=== PATIENT | female | born 1960 | race Caucasian/White ===

== ENCOUNTER 2019-05-03 07:53 | Outpatient (CLI) | payer OTHER, SELFPAY ==
--- NOTE | 2019-05-08 02:09 | SLEEP_ITS ---
Split Night Study. DATE OF STUDY: 05/03/2019 REASON FOR THIS STUDY: Hypersomnia. HISTORY: This patient is a 58-year-old female, 62 inches tall, weighing 237 pounds with a body mass index of 43.3. She has excessive daytime sleepiness, nods off at her work during the afternoon. She had a colonoscopy and during that procedure with conscious sedation, she did have witnessed apnea. She often coughs at night, has GERD and uses [id number] treatments. She avoids eating late at night, rarely uses alcohol. Bedtime is 10:30 p.m., waking at 5:45 a.m., usually twice during the night to urinate. She does have dreams mainly on the weekends after she goes back to bed in the morning for 2 additional hours of recovery sleep. She will also take a nap on the weekends for roughly an hour and a half. Sometimes, a nap is refreshing. She has vivid dreams occasionally. There are no symptoms to suggest narcolepsy such as sleep paralysis, vivid dreams on sleep onset or waking from sleep, muscle weakness with strong emotion. She has gained 30 pounds in the last 5 years. She does wake in the morning with a dry mouth. Her legs are uncomfortable during the day as well as during the night. She constantly moves her legs in the daytime, especially if she is in the car. She does not kick her legs at night. Her dentist is a sleep medicine dentist and when she spoke with him about having a sleep study, he agreed it was a good idea. She drinks caffeine, Dr Pepper twice a day. The latest is around dinner. She now drives only 15 minutes to work, which is safer as last year driving 30 minutes she was constantly falling asleep while driving home. Her snoring has worsened as she has gained weight. Her has witnessed apnea. Her friends on a weekend trip were really concerned because she stopped breathing and snored so loudly. Her symptoms have been much worse over the last 6 months. She only occasionally has trouble during the daytime at work due to excessive sleepiness. She frequently has racing thoughts. She rarely feels sad or depressed, but frequently has anxiety. She occasionally has muscular tension. She occasionally is bothered by pain during the day and her joints after sitting for a long period of time. She occasionally is awakened by pain at night, occasionally wakes up feeling stiff in the morning with sore achy muscles and pain in the spine. She has fatigue and is unable to relax. She takes antacids frequently. MEDICAL COMORBIDITIES: 1. Hypertension. 2. Generalized anxiety. 3. Gastroesophageal reflux disease. MEDICATIONS: 1. Amlodipine 5 mg a day. 2. Citalopram 20 mg a day. 3. Omeprazole 1 daily. 4. Calcium citrate with vitamin D 1 daily. 5. Xanax p.r.n. 0.25 mg p.r.n. severe anxiety. HABITS: Never smoked tobacco. Caffeine, 2 beverages a day. Alcohol is not used neither recreational drugs. DESCRIPTION OF THE STUDY: On the [place] Sleepiness Scale, her score 16. This was conducted as a split night study using the [employer] multiple channel system including EOG, EEG, submental EMG, EKG, nasal and oral airflow using thermistors and nasal pressure sensors, chest and abdominal belts, body position data and pulse oximetry. The study was scored using [facility] guidelines. The duration of the study during the baseline portion is 138.9 minutes. Sleep time 130.5 minutes. Sleep efficiency is 93.9%. Sleep latency is 1.8 minutes. She took 2 mg of eszopiclone at the start of the test, so this explains the short sleep latency. There was no REM. There were 9 awakenings and she spent 6.6 minutes awake after sleep onset. Sleep architecture showed 5.7% stage I sleep, 94.3% stage II sleep, no stage III sleep, and no stage REM. None of this portion was supine. The apnea-hypopnea index
== END 2019-05-03 07:54 | disposition home or self-care (01) ==
LOC: ANHCSM 07:54
PROVIDERS: Visit Provider Internal Medicine Critical Care Medicine
DX: G47.10 Hypersomnia, unspecified (principal); G47.33 Obstructive sleep apnea (adult) (pediatric)
CPT/HCPCS: 95811

== ENCOUNTER 2019-09-28 07:12 | Outpatient (CLI) | payer OTHER, SELFPAY ==
[2019-09-28 08:03] LABS: Basophils Absolute Auto 0.1 K/mm3 (0.0-0.1); Eosinophils Absolute Auto 0.2 K/mm3 (0-0.3); Eosinophils Percent Auto 4.5 % (0-4.4); Hematocrit 41.6 % (37.0-47.0); Hemoglobin 13.6 g/dL (12.0-15.0); Immature Granulocyte Absolute 0.01 K/mm3 (0.00-0.031); Immature Granulocyte Percent A 0.2 % (0-0.5); Mean Corpuscular HGB Conc 32.7 g/dl (32-36); Mean Corpuscular Hemoglobin 29.2 pg (26-34); Mean Corpuscular Volume 89.3 fl (80-100); Mean Platelet Volume 10.2 fl (7.4-10.4); Monocytes Absolute Auto 0.4 K/mm3 (0.1-0.6); Monocytes Percent Auto 7.8 % (2.6-8.5); Neutrophils Absolute Auto 2.6 K/mm3 (1.3-6.7); Neutrophils Percent Auto 53.5 % (45.5-73.1); Platelet Count Result 247 k/mm3 (150-375); Red Blood Count 4.66 M/mm3 (4.2-5.4); Red Cell Distribution Width 14.5 % (11.5-14.5); White Blood Count 4.9 K/mm3 (4.5-10.0)
[2019-09-28 08:07] LABS: Alanine Aminotransferase 25 U/L (4-35); Albumin Level 4.2 g/dL (3.5-5.1); Alkaline Phosphatase 89 U/L (38-126); Aspartate Amino Transferase 27 U/L (14-36); Bilirubin,Total 0.5 mg/dL (0.2-1.3); Blood Urea Nitrogen 16 mg/dL (7-17); Calcium 8.9 mg/dL (8.4-10.2); Carbon Dioxide 29 mmol/L (22-30); Chloride 102 mmol/L (98-107); Cholesterol 217 mg/dL (0-200); Estimated Glomerular Filt Rate > 60; Glucose 106 mg/dL (65-105); HDL Direct 46 mg/dL; Potassium 4.3 mmol/L (3.4-5.0); Sodium 136 mmol/L (137-145); Triglycerides 95 mg/dL (<150)
[2019-09-28 08:18] LABS: LDL Cholesterol Direct 126 mg/dL
[2019-09-28 09:11] LABS: Folic Acid 8.4 ng/mL (2.76->20)
== END 2019-09-28 07:13 | disposition home or self-care (01) ==
PROVIDERS: PCP Internal Medicine; Visit Provider Internal Medicine
DX: R53.83 Other fatigue (principal); R73.9 Hyperglycemia, unspecified; E78.5 Hyperlipidemia, unspecified
CPT/HCPCS: 36415; 80053; 80061; 82607; 82746; 83036; 84443; 85025

== ENCOUNTER 2020-01-09 15:49 | Outpatient (CLI) | payer OTHER, SELFPAY ==
--- NOTE | ~2020-01-09 | MM_ITS ---
EXAMINATION: MM screening [facility] BI w kevon HISTORY: Screening TECHNIQUE: Craniocaudal and mediolateral oblique 3-D tomosynthesis images were obtained and synthetic 2-D images were generated. CAD analysis was submitted and interpreted. COMPARISON: Comparison to multiple prior studies sequentially, with oldest reviewed study dated 02/03. BREAST PARENCHYMAL COMPOSITION: The breasts are heterogeneously dense, which may obscure small masses . FINDINGS: There is no evidence of suspicious mass, calcification, or architectural distortion to sugg est malignancy in either breast. There has been no suspicious interval change. IMPRESSION: 1. No mammographic evidence of malignancy. 2. Recommend routine screening mammography in one year. BI-RADS Category 1: Negative Reviewed, dictated and finalized at location A.
== END 2020-01-09 15:50 | disposition home or self-care (01) ==
LOC: ANHIMG 15:52
PROVIDERS: PCP Internal Medicine; Visit Provider Obstetrics & Gynecology
DX: Z12.31 Encounter for screening mammogram for malignant neoplasm of breast (principal)
CPT/HCPCS: 77063; 77067

== ENCOUNTER 2020-02-01 08:54 | Outpatient (CLI) | payer OTHER, SELFPAY ==
--- NOTE | ~2020-02-01 | DEXA_ITS ---
Bone Density Report Name: Sienna Hussein Age: 59 Sex: Female Ethnicity: White Date of : 1960 Indication: postmenopausal; Referring Provider: Felxi Angel Study: Bone densitometry was performed. Exam Date: February 01, 2020 Accession number: [id number] Bone Density: Region BMD T-score Z-score Classification AP Spine (L1-L4) 1.004 -0.4 0.9 Normal Femoral Neck (Left) 0.768 -0.7 0.5 Normal Total Hip (Left) 0.899 -0.4 0.5 Normal Total Hip Bilateral Avg 0.931 -0.1 0.8 Normal Femoral Neck (Right) 0.797 -0.5 0.7 Normal Total Hip (Right) 0.962 0.2 1.0 Normal World Health Organization criteria for BMD impression classify patients as: Normal (T-score at or above -1.0), Osteopenia (T-score between -1.0 and -2.5), or Osteoporosis (T-score at or below -2.5). 10-year Fracture Risk: FRAX not reported because: All T-scores for Spine Total, Hip Total, Femoral Neck at or above -1.0 Previous Exams: Region Exam Age BMD T-score BMD Change BMD Change Date g/cm2 vs Baseline vs Previous Total Hip(Left) 02/01/2020 59 0.899 -0.4 -0.076(-7.8%)# -0.068(-7.0%)* 03/19/2015 54 0.967 0.2 -0.008(-0.8%)# -0.008(-0.8%)# 02/23/2013 52 0.975 0.3 Total Hip(Right) 02/01/2020 59 0.962 0.2 -0.033(-3.4%)# -0.042(-4.2%)* 03/19/2015 54 1.004 0.5 0.009(0.9%)# 0.009(0.9%)# 02/23/2013 52 0.996 0.4 *Denotes significance at 95% confidence level, LSC for Total Hip = 0.027 g/cm2 Clinical Information Provided by Patient: Has used the following medications: HRT (i.e. estrogen/hormone therapy), Vitamin D, Calcium Patient maximum height was 62.5 Menopause Age: 51 No regular weight bearing exercise Drinks caffeinated beverages Onset of menses at age 13 Number of children 2 Impression: The patient has normal bone mass. The BMD for the Total Hip(Left) decreased, changing by -7.0% since the last DXA exam. The BMD for the Total Hip(Right) decreased, changing by -4.2% since the last DXA exam. Discussion: BONE DENSITY IS ABOVE THE MINIMUM DESIRABLE LEVEL AT ALL SKELETAL SITES TESTED. This patient?s bone mineral density is above the minimum desirable level (T-score -1.0 or better) at all sites measured. The patient should follow a healthful lifestyle (good nutrition with adequate calcium and vitamin D, and appropriate weight-bearing exercise). Follow-Up: Consider repeating this study in 3 to 4 years to reassess this patient's status, or sooner if there is some new clinical indication. R
== END 2020-02-01 08:55 | disposition home or self-care (01) ==
LOC: ANHIMG 08:57
PROVIDERS: PCP Internal Medicine; Visit Provider Obstetrics & Gynecology
DX: Z13.820 Encounter for screening for osteoporosis (principal); Z78.0 Asymptomatic menopausal state
CPT/HCPCS: 77080

== ENCOUNTER 2020-12-12 06:42 | Outpatient (CLI) | payer OTHER, SELFPAY ==
[2020-12-12 07:21] LABS: Basophils Percent Auto 0.8 % (0.2-1.2); Eosinophils Absolute Auto 0.1 K/mm3 (0-0.3); Eosinophils Percent Auto 2.4 % (0-4.4); Hematocrit 42.7 % (37.0-47.0); Hemoglobin 13.7 g/dL (12.0-15.0); Immature Granulocyte Absolute 0.01 K/mm3 (0.00-0.031); Immature Granulocyte Percent A 0.2 % (0-0.5); Lymphocytes Absolute Auto 1.81 K/mm3 (0.9-3.2); Lymphocytes Percent Auto 36.3 % (18.3-44.2); Mean Corpuscular HGB Conc 32.1 g/dl (32-36); Mean Corpuscular Hemoglobin 30.4 pg (26-34); Mean Corpuscular Volume 94.7 fl (80-100); Monocytes Absolute Auto 0.4 K/mm3 (0.1-0.6); Monocytes Percent Auto 7.4 % (2.6-8.5); Neutrophils Absolute Auto 2.6 K/mm3 (1.3-6.7); Neutrophils Percent Auto 52.9 % (45.5-73.1); Platelet Count Result 245 k/mm3 (150-375); Red Blood Count 4.51 M/mm3 (4.2-5.4); Red Cell Distribution Width 13.4 % (11.5-14.5)
[2020-12-12 07:40] LABS: Alanine Aminotransferase 20 U/L (4-35); Albumin Level 4.3 g/dL (3.5-5.1); Alkaline Phosphatase 76 U/L (38-126); Anion Gap 6 mmol/L (8-16); Aspartate Amino Transferase 22 U/L (14-36); Bilirubin,Total 0.7 mg/dL (0.2-1.3); Blood Urea Nitrogen 19 mg/dL (7-17); Calcium 9.4 mg/dL (8.4-10.2); Carbon Dioxide 29 mmol/L (22-30); Chloride 103 mmol/L (98-107); Cholesterol 220 mg/dL (0-200); Estimated Glomerular Filt Rate 57; Glucose 107 mg/dL (65-110); HDL Direct 73 mg/dL; Potassium 4.2 mmol/L (3.4-5.0); Sodium 138 mmol/L (137-145); Triglycerides 65 mg/dL (<150)
[2020-12-12 07:50] LABS: LDL Cholesterol Direct 101 mg/dL
[2020-12-12 08:27] LABS: Hemoglobin A1C 5.7 % (<5.7)
[2020-12-12 08:42] LABS: Folic Acid 8.5 ng/mL (2.76->20)
== END 2020-12-12 06:43 | disposition home or self-care (01) ==
LOC: ANHLAB 06:45
PROVIDERS: PCP Internal Medicine; Visit Provider Internal Medicine
DX: R53.83 Other fatigue (principal); R73.9 Hyperglycemia, unspecified; E78.5 Hyperlipidemia, unspecified
CPT/HCPCS: 36415; 80053; 80061; 82607; 82746; 83036; 84443; 85025

== ENCOUNTER 2021-03-06 15:02 | Outpatient (CLI) | payer OTHER, SELFPAY ==
--- NOTE | ~2021-03-06 | MM_ITS ---
EXAMINATION: MM screening dell BI w kevon HISTORY: Screening mammogram TECHNIQUE: Craniocaudal and mediolateral oblique 3-D tomosynthesis images were obtained and synthetic 2-D images were generated. CAD analysis was submitted and interpreted. COMPARISON: 01/09/2020 bilateral screening mammogram 01/02/2017 complete right breast ultrasonogram of the left breast ultrasound 01/12/2017 bilateral diagnostic mammogram 12/23/2016, 03/19/2015 bilateral screening mammogram examinations BREAST PARENCHYMAL COMPOSITION: The breasts are heterogeneously dense, which may obscure small masses . FINDINGS: There is no evidence of suspicious mass, calcification, or architectural distortion to sugg est malignancy in either breast. There has been no suspicious interval change. IMPRESSION: 1. No mammographic evidence of malignancy. 2. Recommend routine screening mammography in one year. BI-RADS Category 1: Negative Reviewed, dictated and finalized at location A. [employer]
== END 2021-03-06 15:03 | disposition home or self-care (01) ==
LOC: ANHIMG 15:04
PROVIDERS: PCP Internal Medicine; Visit Provider Obstetrics & Gynecology
DX: Z12.31 Encounter for screening mammogram for malignant neoplasm of breast (principal)
CPT/HCPCS: 77063; 77067

== ENCOUNTER 2021-08-20 16:00 | Outpatient (RCR) | payer OTHER, SELFPAY ==
--- NOTE | 2021-06-18 17:24 | PTOPEVAL ---
Thank you for referring Sienna Hussein to [facility].? The patient is scheduled to be seen for therapy? 2 x/week for 5 weeks. Please review, sign, date and return this plan of care CORINNE. I agree with and certify that the following plan of care is medically necessary. Referring Physician Date Attending Provider: Prince Kirkland, DO Diagnosis low back pain, left hip pain Onset 02/22 Subjective Information Reports she has been having Query Text:As Reported By Patient/ hip and radiating symptoms Family into her left leg since 02/22. She walked at a park for 1 1/ 2 hrs when her pain increased. She has increased pain with walking, standing, prolonged sitting, increased activities, driving in a car. 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 She bend over to take off her mother's leg wraps. She walks a lot during the summer, but not during the winter. She performs a few stretches everyday. Previous Treatments Previous Treatments For This Problem 5-7 yrs ago Pain Assessment Lower Back Reported Pain Level 4 Pain Description Radiating,Tender on Palpation, Tightness,Tingling Pain Frequency Chronic,Continuous Lowest Pain Intensity 3 Greatest Pain Intensity 8 Pain Aggravating Factors Bending,Exercise/Activity, Prolonged Position,Sitting, Walking,Weight Bearing/ Standing Cervical and Lumbar ROM Lumbar ROM Lumbar Flexion Active Mid [place]:Hands to: Lateral Flexion distal thigh region:Active Hands to: Lumbar ROM 75% of Normal Lumbar Comments no pain with motion Cervical and Lumbar Muscle Testing Lumbar Strength Upper Abdominal Strength 3 Fair Upper Back Extension 3 Fair Lower Back Extension 3 Fair Lower Extremity Muscle Strength Testing General Lower Extremity Strength Gross Lower Extremity Strength lottie LE 5/5 hip except hip abd: 3/5 Muscle Length Testing Muscle Length Testing Two-Joint Hip Flexor Shortened Muscles Short (R) Iliopsoas,Short (L) Iliopsoas,Short (R) Rectus Femoris,Short (L) Rectus Femoris,Short (R) Ilial Tib
--- NOTE | 2021-07-16 17:45 | PCPTNOTE ---
Admitting Provider: Attending Provider: Prince Kirkland DO Patient:Sienna Hussein Date of :1960 Re-evaluation for left ankle/foot pain. Pt was referred with new order to address left foot pain. She is also receiving treatment to address her back and hip pain. She demonstrates decreased left ankle DF to neutral, PF: 50 dg, INV: 20 dg, EV: 20 dg, great toe ext: 35 dg MMT: 5/5 DF/INV/EV, unable to perform single heel raises on left LE. tenderness of post tib proximal attachment, calcaneus, plantar surface of left foot. She requires the skills and knowledge of a therapist to address her foot pain and limitations in addition to her back and hip related impairments. New goals with an updated POC. Cont therapy 2x/wk x 4-6 wk to address impairments. [ End ] Thank you for referring this patient to [facility]. Please review, sign, date and return this updated treatment plan. Referring Physician Date
--- NOTE | 2021-07-16 17:49 | PCPTNOTE ---
Admitting Provider: Attending Provider: Prince Kirkland DO Patient:Sienna Hussein Date of :1960 Physical Therapy Re-eval for foot/ankle Pt seen for therapy assessment of left foot pain which began when her hip and back pain started. Objective measures: left ankle DF: 0 dg, PF: 50 dg, INV: 20 dg, EV: 20 dg, great toe ext: 35 dg MMT: 5/5 DF/INV/EV, unable to perform single heel raises on left LE. tenderness of post tib proximal attachment, calcanous, plantar surface of left foot Assessment: Will progressed treatment to address ankle and foot with manual therapy, modalities, strengthening, ROM and functional movement retraining. Will vary daily treatment to address back/hip and foot. Thank you for referring this patient to [facility]. Please review, sign, date and return this updated therapy POC CORINNE. Referring Physician Date
--- NOTE | 2021-07-23 18:19 | PTOPEVAL ---
Physical Therapy Progress Note Thank you for referring Sienna Hussein to [facility].? Pt referred to therapy due to recent onset of back pain with radiating symptoms into left LE. She is also receiving treatment for her foot pain. She has attended 11 therapy visits. As a result of therapy services she is progressing towards her functional goals with improved strength, trunk motion, improved pain. She cont to be limited with prolonged walking and sitting or standing. Cont to have difficulty riding in a car. Modified Oswestry: 28% impaired at eval and update Assessment:Sienna present to therapy with improved neurodynamic sciatic symptoms of left LE and improved soft tissue restriction. But cont to require therapy to address her muscle weakness impairment and poor body awareness and functional movement for her back/hip region. The patient is scheduled to be seen for therapy?2x/week for 4 weeks. Please review, sign, date and return this plan of care CORINNE. I agree with and certify that the following plan of care is medically necessary. Referring Physician Date Attending Provider: Prince Kirkland, DO Diagnosis low back pain, left hip pain Onset 02/22 Subjective Information She was having improved back Query Text:As Reported By Patient/ pain until this weekend she Family sat in the car for a 1:30 car ride with increased radiating post leg/buttock pain. She has increased pain with prolonged walking, standing, and prolonged sitting. She tries to adjust her posture in seated by leaning to side, but this did not help her pain recently. She purchased shoe inserts. Pain Assessment Self Report Pain Assessment Left Foot/Feet Reported Pain Level 4 Lower Back Reported Pain Level 4 Pain Description Numbness,Radiating,Tingling Pain Frequency Chronic,Continuous Lowest Pain Intensity 2 Greatest Pain Intensity 4 Pain Aggravating Factors Bending,Exercise/Activity, Prolonged Position,Sitting, Walking,Weight Bearing/ Standing Lumbar ROM Lumbar Flexion Active Ankle:Hands to: Lateral Flexion distal thigh region on right Query Text:Active Hands to: and lateral knee on left Lumbar Comments no pain with motion trunk ext: 100% Cervical and Lumbar Muscle Testing Upper Abdominal Strength 3 Fair Lower Extremity Muscle Strength Testing Gross Lower Extremity Strength lottie LE 5/5 hip except hip abd: 3/5 Muscle Length Testing Piriformis w/Hip Neutral (R) Moderate Tightness,(L) Moderate Tigh
--- NOTE | 2021-08-20 17:12 | PTOPEVAL ---
Physical Therapy Discharge Summary Thank you for referring Sienna Hussein to [facility].?Sienna was referred to therapy due to recent onset of back pain with radiating symptoms into left LE. She is also receiving treament for her foot pain. She has attended 19 therapy visits from 06/18/21 to 08/20/21. As a result of therapy services she reports improved back and foot symptoms, improved ability to perform daily task, improved ankle strength and motion, improve body awareness and gait deviation. Modified Oswestry: 28% impaired at eval and update 24% impaired Sienna has partially achieved her therapy goals at this time. She has been instructed in a HEP and demonstrates understanding and compliance. Will DC skilled therapy services at this time with recommendations she f/u with her MD in a few weeks if her foot symptoms. continue. Please review, sign, date and return this discharge summary CORINNE. I agree with and certify that the following plan of care is medically necessary. Referring Physician Date Attending Provider: Prince Kirkland, Diagnosis low back pain, left hip pain and left foot pain Onset 02/22 Subjective Information She cont to have increased Query Text:As Reported By Patient/ back pain with prolonged Family sitting in the car. She has increased foot pain with the 1st few steps of walking after prolonged sitting. She purchased new supportive shoes. She is able to walk 20 min with walk/rest with only min back pain. Pain Assessment Left Foot/Feet Reported Pain Level 2 Pain Description Aching,Sharp,Tightness Lowest Pain Intensity 2 Greatest Pain Intensity 4 Pain Aggravating Factors Prolonged Position,Walking, Weight Bearing/Standing Lower Back Reported Pain Level 1 Lowest Pain Intensity 1 Greatest Pain Intensity 2 Lower Extremity Range of Motion General Lower Extremity Range of Motion Gross Lower Extremity Range of Motion left ankle DF: neutral, right Comments ankle DF: 3 dg right INV: 30 dg, EV: 30 dg, left INV: 30 dg, EV: 20 dg lottie great toe ext: 40 dg Lower Extremity Muscle Strength Testing General Lower Extremity Strength Gross Lower Extremity Strength lottie LE 5/5 hip except hip abd: 3/5 single heel raises: left 10 reps, right: 12 reps partial range on lottie lottie heel raises x 10 reps full range Muscle Length Testing Muscle Length Testing Two-Joint Hip Flexor Shortened Muscles Short (R) Iliopsoas,Short (L) Iliopsoas,Short (R) Rectus
== END 2021-09-01 12:48 | disposition home or self-care (01) ==
LOC: ANHPT 16:00
PROVIDERS: PCP Internal Medicine; Visit Provider Internal Medicine
DX: M54.9 Dorsalgia, unspecified (principal)
CPT/HCPCS: 97035; 97110; 97112; 97140; 97162; 97530

== ENCOUNTER 2022-01-05 08:36 | Outpatient (CLI) | payer OTHER, SELFPAY ==
[2022-01-05 09:03] LABS: Basophils Absolute Auto 0.1 K/mm3 (0.0-0.1); Eosinophils Absolute Auto 0.1 K/mm3 (0-0.3); Hematocrit 43.7 % (37.0-47.0); Immature Granulocyte Absolute 0.02 K/mm3 (0.00-0.031); Immature Granulocyte Percent A 0.4 % (0-0.5); Lymphocytes Percent Auto 29.9 % (18.3-44.2); Mean Corpuscular Hemoglobin 29.8 pg (26-34); Mean Platelet Volume 8.8 fl (7.4-10.4); Monocytes Absolute Auto 0.3 K/mm3 (0.1-0.6); Monocytes Percent Auto 6.6 % (2.6-8.5); Neutrophils Percent Auto 60.1 % (45.5-73.1); Platelet Count Result 215 k/mm3 (150-375); Red Cell Distribution Width 13.3 % (11.5-14.5)
[2022-01-05 09:16] LABS: Alanine Aminotransferase 24 U/L (6-35); Albumin Level 4.4 g/dL (3.5-5.1); Alkaline Phosphatase 79 U/L (38-126); Anion Gap 8 mmol/L (8-16); Aspartate Amino Transferase 25 U/L (14-36); Bilirubin,Total 0.6 mg/dL (0.2-1.3); Blood Urea Nitrogen 16 mg/dL (7-17); Calcium 8.8 mg/dL (8.4-10.2); Carbon Dioxide 30 mmol/L (22-30); Chloride 100 mmol/L (98-107); Cholesterol 242 mg/dL (0-200); Estimated Glomerular Filt Rate 57; Glucose 109 mg/dL (65-110); HDL Direct 63 mg/dL; Magnesium 2.2 mg/dL (1.6-2.3); Potassium 4.1 mmol/L (3.4-5.0); Sodium 138 mmol/L (137-145); Triglycerides 122 mg/dL (<150)
[2022-01-05 09:27] LABS: LDL Cholesterol Direct 124 mg/dL
[2022-01-05 12:59] LABS: Folic Acid 8.7 ng/mL (2.76->20)
== END 2022-01-05 08:37 | disposition home or self-care (01) ==
LOC: ANHLAB 08:39
PROVIDERS: PCP Internal Medicine; Visit Provider Internal Medicine
DX: R53.83 Other fatigue (principal); E78.5 Hyperlipidemia, unspecified; I10 Essential (primary) hypertension
CPT/HCPCS: 36415; 80053; 80061; 82607; 82746; 83735; 84443; 85025

== ENCOUNTER 2022-09-10 01:02 | Day surgery (SDC) | payer OTHER, SELFPAY ==
[2022-09-02 13:36] VITALS: BMI 43.9
--- NOTE | 2022-09-10 07:30 | PM.HPGS ---
History of Present Illness History of Present Illness Consent: Risks, benefits, and alternatives have been discussed and questions answered. Patient agrees to proceed with procedure. Chief complaint: hx colon polyps, family hx colon polyps, neoplasm Narrative: Sienna Hussein is a 61 year old female Referred for colon cancer screening. She had tubular adenoma removed 4 years ago . Review of Systems Review of Systems: All systems reviewed & are unremarkable except as noted in HPI and below PMFSH Past Medical History Medical History Anemia Anxiety Depression DJD (degenerative joint disease), lumbosacral DVT (deep venous thrombosis) Essential hypertension Tendinitis Surgical History Surgical History History of colonoscopy History of tonsillectomy Hx of breast biopsy Hx of dilation and curettage Family History Family History Mother Hypertension Breast cancer Afib Father Hypertension Diabetes mellitus Melanoma Sibling Depression Grandparent Malignant neoplasm of prostate Grandparent Parkinson disease Grandparent Alzheimer's disease Grandparent CHF (congestive heart failure) Social History Social History Smoking status: Never smoker Alcohol intake: never Alcohol use details: Rarely Substance use: never Substance use type: does not use Living arrangements: with family Spiritual care concerns: No Meds Home Medications and Allergies Home Medications Medication Instructions Recorded Confirmed Type calcium carbonate 600 mg-vitamin 1 tablet PO DAILY 04/24/19 09/02/22 History D3 20 mcg (800 unit) chewable tablet alprazolam 0.25 mg tablet 0.25 mg PO BID #30 tabs 02/03/21 09/02/22 Rx sertraline 100 mg tablet 100 mg PO DAILY #90 tabs 01/14/22 09/02/22 Rx amlodipine 5 mg tablet 5 mg PO DAILY #90 tabs 05/12/22 09/02/22 Rx Allergies Allergy/AdvReac Type Severity Reaction Status Date / Time lisinopril AdvReac Mild Cough Verified 09/10/22 07:42 Exam Const: General: alert Orientation/consciousness: patient oriented x3 Resp: Auscultation: clear to auscultation bilaterally Cardio: Rhythm: regular rhythm GI: GI Palp: Yes Soft to palpation and No Tenderness to palpation present (GI) Neuro: General: patient oriented x3 Assessment and Plan Assessment and plan (1) Colon cancer screening: Code(s): Z12.11 - Encounter for screening for malignant neoplasm of colon Status: Acute Assessment and Plan: Colonoscopy with possible biopsy or polypectomy or cautery or injection of substances.
[2022-09-10 07:44] VITALS: BP 136/74; PULSE 84; RESP 20; TEMP 36.5; O2SAT 98
[2022-09-10] MEDS: LACTATED RINGERS 1,000 ML 150 ML IV CONT (07:55)
--- NOTE | 2022-09-10 07:55 | WPDANESEPPF ---
Anes - Initial Pre Proc Eval Procedure: Operation Date: 09/10/22 08:30 Proposed Procedures p Screening Colonoscopy - Deshaun Rosado MD Date/Time: 09/10/22 07:55 Surgeon: Deshaun Rosado MD Pre Op Diagnosis: hx colon polyps, family hx colon polyps, neoplasm Patient Data Age: 61 Gender: F Height: 1.57 m Weight: 109.3 kg Last Vital Signs Temp 36.5 C 09/10/22 07:44 Pulse 84 09/10/22 07:44 Resp 20 09/10/22 07:44 BP 136/74 09/10/22 07:44 Pulse Ox 98 09/10/22 07:44 O2 Del Method Room Air 09/10/22 07:44 Allergies Allergy/AdvReac Type Severity Reaction Status Date / Time lisinopril AdvReac Mild Cough Verified 09/10/22 07:42 Home Medications Medication Instructions Recorded Confirmed Type calcium carbonate 600 mg-vitamin 1 tablet PO DAILY 04/24/19 09/02/22 History D3 20 mcg (800 unit) chewable tablet alprazolam 0.25 mg tablet 0.25 mg PO BID #30 tabs 02/03/21 09/02/22 Rx sertraline 100 mg tablet 100 mg PO DAILY #90 tabs 01/14/22 09/02/22 Rx amlodipine 5 mg tablet 5 mg PO DAILY #90 tabs 05/12/22 09/02/22 Rx Patient hx anesthesia problems: none Family hx anesthesia problems: none Results Review: All pre-operative results and documents have been reviewed as part of the pre-operative evaluation. [facility] Past Medical History Medical History Anemia Anxiety Depression DJD (degenerative joint disease), lumbosacral DVT (deep venous thrombosis) Essential hypertension Tendinitis Surgical History Surgical History History of colonoscopy History of tonsillectomy Hx of breast biopsy Hx of dilation and curettage Family History Family History Mother Hypertension Breast cancer Afib Father Hypertension Diabetes mellitus Melanoma Sibling Depression Grandparent Malignant neoplasm of prostate Grandparent Parkinson disease Grandparent Alzheimer's disease Grandparent CHF (congestive heart failure) Social History Social History Smoking status: Never smoker Alcohol intake: never Alcohol use details: Rarely Substance use: never Substance use type: does not use Living arrangements: with family Spiritual care concerns: No Anes - Eval Final PreProcedure Day of Procedure 09/10/22 07:55 Patient weight: morbidly obese Heart: regular rate and rhythm Lungs: clear to auscultation and normal air movement Airway: Mallampati scale class II Neurological: alert and oriented Last oral intake: >/= 8 hours ASA classification: III Emergent: no Anesthetic plan: proceed Anesthesia type and monitoring: general GIVS Results Review: All pre-operative results and documents have been reviewed as part of the pre-operative evaluation. Informed Consent: The patient's anesthetic plan and its attendant risks and benefits were discussed with the patient/family/POA. Questions were solicited and answers provided to the satisfaction of the patient/family/POA.
[2022-09-10 08:50] VITALS: BP 131/76; PULSE 71; RESP 18; O2SAT 99
[2022-09-10 09:00] VITALS: BP 125/74; PULSE 74; RESP 19; O2SAT 100
[2022-09-10 09:10] VITALS: BP 136/79; PULSE 68; RESP 17; O2SAT 99
== END 2022-09-10 09:23 | disposition home or self-care (01) ==
PROVIDERS: PCP Internal Medicine; Visit Provider Internal Medicine Gastroenterology
PROC: 0DJD8ZZ Inspection of Lower Intestinal Tract, Via Natural or Artificial Opening Endoscopic (ICD-10-PCS; CPT 45378; principal; 2022-09-10 08:30)
DX: Z12.11 Encounter for screening for malignant neoplasm of colon (principal); D12.2 Benign neoplasm of ascending colon; Z83.71 Family history of colonic polyps; I10 Essential (primary) hypertension; F41.9 Anxiety disorder, unspecified; F32.A Depression, unspecified; E66.01 Morbid (severe) obesity due to excess calories; Z68.41 Body mass index [BMI] 40.0-44.9, adult
CPT/HCPCS: 45385; 45381; 88305; J2001; J2704; J7120

== ENCOUNTER 2023-02-22 09:05 | Outpatient (CLI) | payer OTHER, SELFPAY ==
--- NOTE | ~2023-02-22 | MM_ITS ---
EXAMINATION: MM screening [facility] BI w kevon HISTORY: Screening mammogram TECHNIQUE: Craniocaudal and mediolateral oblique 3-D tomosynthesis images were obtained and synthetic 2-D images were generated. CAD analysis was submitted and interpreted. COMPARISON: 03/06/2021, 01/09/2020 bilateral screening mammogram examinations BREAST PARENCHYMAL COMPOSITION: The breasts are heterogeneously dense, which may obscure small masses . FINDINGS: There is a biopsy marker on the right. History of prior benign right breast biopsy. There i s suggestion of architectural distortion in the lower outer quadrant of the right breast; diagnostic right mammogram and right breast ultrasound examination are recommended. Otherwise no suspicious mass, architectural distortion, malignant calcification, skin thickening or r etraction of either breast is detected. IMPRESSION: 1. Possible architectural distortion, lower outer right breast 2. Diagnostic right mammogram and right breast ultrasound examination are recommended BI-RADS Category 0: Incomplete: Needs additional imaging evaluation. Reviewed, dictated and finalized at location A. MAKER IMPRESSION: 1. Possible architectural distortion, lower outer right breast 2. Diagnostic right mammogram and right breast ultrasound examination are recom mended BI-RADS Category 0: Incomplete: Needs additional imaging evaluation.
== END 2023-02-22 09:06 | disposition home or self-care (01) ==
PROVIDERS: PCP Internal Medicine; Visit Provider Obstetrics & Gynecology
DX: Z12.31 Encounter for screening mammogram for malignant neoplasm of breast (principal); R92.8 Other abnormal and inconclusive findings on diagnostic imaging of breast
CPT/HCPCS: 77063; 77067

== ENCOUNTER 2023-03-04 13:22 | Outpatient (CLI) | payer OTHER, SELFPAY ==
--- NOTE | ~2023-03-04 | MMUS_ITS ---
EXAMINATION: MM diagnostic dell RT w kevon, US breast RT complete HISTORY: Possible architectural distortion reported in the lower outer right breast on 02/22/2023 scr eening mammogram TECHNIQUE: Additional 3-D tomosynthesis images of the right breast were performed and synthetic 2-D i mages were generated. CAD analysis was submitted and interpreted. High resolution complete right alisson st ultrasound including all 4 quadrants and subareolar area was performed. COMPARISON: 02/22/2023, 03/06/2021 bilateral screening mammogram examinations FINDINGS: MAMMOGRAPHIC FINDINGS: No suspicious mass or architectural distortion is evident on these supplemental views. The heterogeneously dense stroma however vascular masses. Ultrasound examination was performed. ULTRASOUND: There are multiple cysts of the right breast scattered at 12:00, 9:00, 10:00 and 11:00 including 2 co ntiguous cysts at 12:00, measuring up to approximately 8 mm maximal dimension. No suspicious mass or shadowing is detected. IMPRESSION: 1. Multiple benign cysts; no evidence of malignancy 2. Routine annual mammographic screening is recommended BI-RADS Category 2: Benign finding(s). Reviewed, dictated and finalized at location A. ER WASHER IMPRESSION: 1. Multiple benign cysts; no evidence of malignancy 2. Routine annual mammographic screening is recommended BI-RADS Category 2: Benign finding(s).
== END 2023-03-04 13:23 | disposition home or self-care (01) ==
PROVIDERS: PCP Internal Medicine; Visit Provider Obstetrics & Gynecology
DX: R92.8 Other abnormal and inconclusive findings on diagnostic imaging of breast (principal)
CPT/HCPCS: 76641; 77061; 77065; G0279

== ENCOUNTER 2023-08-01 09:16 | Outpatient (CLI) | payer OTHER, SELFPAY ==
[2023-08-01 09:52] LABS: Basophils Percent Auto 0.7 % (0.2-1.2); Eosinophils Absolute Auto 0.2 K/mm3 (0-0.3); Eosinophils Percent Auto 2.9 % (0-4.4); Hematocrit 44.5 % (37.0-47.0); Hemoglobin 14.2 g/dL (12.0-15.0); Immature Granulocyte Absolute 0.03 K/mm3 (0.00-0.031); Immature Granulocyte Percent A 0.5 % (0-0.5); Lymphocytes Absolute Auto 1.53 K/mm3 (0.9-3.2); Mean Corpuscular HGB Conc 31.9 g/dl (32-36); Mean Corpuscular Hemoglobin 28.9 pg (26-34); Mean Corpuscular Volume 90.6 fl (80-100); Mean Platelet Volume 9.6 fl (7.4-10.4); Monocytes Absolute Auto 0.3 K/mm3 (0.1-0.6); Neutrophils Absolute Auto 3.4 K/mm3 (1.3-6.7); Neutrophils Percent Auto 61.9 % (45.5-73.1); Platelet Count Result 247 k/mm3 (150-375); Red Blood Count 4.91 M/mm3 (4.2-5.4); Red Cell Distribution Width 13.4 % (11.5-14.5); White Blood Count 5.5 K/mm3 (4.5-10.0)
[2023-08-01 10:09] LABS: Alanine Aminotransferase 26 U/L (6-35); Albumin Level 4.6 g/dL (3.5-5.1); Alkaline Phosphatase 86 U/L (38-126); Anion Gap 5 mmol/L (4-12); Aspartate Amino Transferase 27 U/L (14-36); Bilirubin,Total 0.7 mg/dL (0.2-1.3); Blood Urea Nitrogen 18 mg/dL (7-17); Calcium 8.5 mg/dL (8.4-10.2); Carbon Dioxide 25 mmol/L (22-30); Chloride 105 mmol/L (98-107); Cholesterol 214 mg/dL (0-200); Estimated Glomerular Filt Rate > 60; Glucose 117 mg/dL (65-110); HDL Direct 66 mg/dL; Sodium 135 mmol/L (137-145); Triglycerides 123 mg/dL (<150)
[2023-08-01 10:20] LABS: LDL Cholesterol Direct 131 mg/dL
== END 2023-08-01 09:17 | disposition home or self-care (01) ==
LOC: ANHLAB 09:18
PROVIDERS: PCP Internal Medicine; Visit Provider Internal Medicine
DX: E78.5 Hyperlipidemia, unspecified (principal); I10 Essential (primary) hypertension; R53.83 Other fatigue; R73.9 Hyperglycemia, unspecified
CPT/HCPCS: 36415; 80053; 80061; 83036; 84443; 85025

== ENCOUNTER 2024-05-24 07:11 | Outpatient (CLI) | payer OTHER, SELFPAY ==
--- NOTE | ~2024-05-24 | XR_ITS ---
Lumbosacral Spine: AP and lateral views Clinical History: Pain Findings: The normal lordotic curve is maintained. No fracture or subluxation. There is multilevel mi ld degenerative change. There is moderate to advanced facet arthropathy, worst at L4-L5 and L5-S1. Th e sacroiliac joints are normally outlined. Impression: Moderate degenerative spondylosis overall, as above. Reviewed, dictated and finalized at location . CAL RECORDS ASSISTANT Impression: Moderate degenerative spondylosis overall, as above.
--- OUTSIDE RECORDS SUMMARY | 2024-05-24 07:20 | XMS_ITS | Clinical Summary ---
Author Organization [facility] Address [address] [place] [address] Care Team Providers Care Roof Bolting Coal Miner Name Role Phone Yash Pena MD Primary Care Provider Un available Allergies Active Allergy Reactions Criticality Noted Date Comments Lisinopril Cough 04/18/2014 Medications calcium carbonate-vitamin D (CALCIUM 600-D) 600-400 MG-UNIT tablet Take 1 tablet by mouth daily. Active ALPRAZolam 0.25 MG tablet Take 0.5-2 tablets by mouth 3 (three) times daily as needed. Active omeprazole EC 20 MG tablet Take 20 mg by mouth daily. Active AMLODIPINE 5 MG tabletIndications :Essential hypertension TAKE 1 TABLET BY MOUTH EVERY DAY DIRECTED 90 tablet 1 0 Active CITALOPRAM 20 MG tabletIndications :Depression with anxiety TAKE 1 TABLET BY MOUTH DAILY 90 tablet 1 0 Active Active Problems Problem Noted Date Diagnosed Date Cubital tunnel syndrome 05/10/2017 Photodermatitis 10/26/2016 Inflamed skin tag 07/08/2016 Onychomycosis 07/06/2016 Depression with anxiety 04/18/2014 Overview (11/21/2018): Transitioned From: Anxiety Essential hypertension 01/14/2014 Resolved Problems Problem Noted Date Diagnosed Date Resolved Date Screening for colon cancer 01/03/2014 0 12/14/2019 Encounter for preventive health examination 06/02/2012 12/14/2019 Immunizations Name Administration Dates Next Due Tdap (Boostrix) 11/21/2018 Social History Tobacco Use Types Packs/Day Years Used Date Smoking Tobacco: Never Assessed Comments Unknown Sex and Gender Information Value Date Recorded Sex Assigned at Not on file Legal Sex Female 7:43 PM CDT Gender Identity Not on file Sexual Orientation Not on file Last Filed Vital Signs Vital Sign Reading Time Taken Comments Blood Pressure 132/80 11/21/2018 3:23 PM CDT Pulse 94 11/21/2018 3:23 PM CDT Temperature 36.1 C (97 F) 11/21/2018 3:23 PM CDT Respiratory Rate 18 11/21/2018 3:23 PM CDT Oxygen Saturation 94% 11/21/2018 3:23 PM CDT Inhaled Oxygen Concentration - - Weight 108.9 kg (240 lb) 11/21/2018 3:23 PM CDT Height 156.8 cm (5' 1.75 ) 11/21/2018 3:23 PM CD T pt reported Body Mass Index 44.25 11/21/2018 3:23 PM CDT Plan of Treatment Health Maintenance Due Date Last Done Comments Cervical Cancer Screening Pa p Smear (Age 30 to 64) Every 3 Years 1960 Hepatitis C 12/23/1979 Cervical Cancer Screening Pa p with HPV Testing (Age 30 to 64) Every 5 Years 12/23/1991 Cervical Cancer Screening with HPV 12/23/1991 Mammogram Screening 2001 Zoster Vaccines (1 of 2) 12/23/2011 Annual Physical 11/22/2019 11/21/2018 COVID-19 Vaccine (2023-2 5 season) 2023 Influenza Adult (#1) 2024 DTaP, Tdap and Td Vaccines ( 2 - Td or Tdap) 11/21/2028 11/21/2018 Colorectal Cancer Screening Colonoscopy (10 Years) 12/07/2028 12/07/2018 RSV Immunization or 60+ Years (1 - 1-dose 75+ series) 2036 Meningococcal B Vaccine Aged Out No l onger eligible based on patient's age to complete this topic Meningococcal Vaccine Aged Out No bear jeff eligible based on patient's age to complete this topic Pneumococcal Vaccine: Pediat rics (0 to 5 Years) and At-Risk Patients (6 to 64 Years) Aged Out No longer eligi ble based on patient's age to complete this topic RSV Immunizations Under 20 Months Aged Out No longer eligible based on patient's age to complete this topic Procedures Procedure Name Priority Date/Time Associated Diagnosis Comments COLONOSCOPY GENERIC (SCAN ORDER) Routine 12/07/2018 from Last 3 Months or Most Recently Relevant to Health Maintenance Results * COLONOSCOPY (12/07/2018) us Documents Scanned SCANNING Edited Result - Final from Last 3 Months or Most Recently Relevant to Health Maintenance Insurance R Care Teams Roof Bolting Coal Miner Relationship Specialty Start Date End Date Yash Pena MD PCP - General FAMILY PRACTICE 11/20/18
--- OUTSIDE RECORDS SUMMARY | 2024-05-24 07:20 | XMS_ITS | Clinical Summary ---
Author Organization [facility] Address [address] [place] [address] Care Team Providers Care Project Structural Engineer Name Role Phone Unavailable Primary Care Provider Unavailabl e Source Comments [facility],non-owned Affiliates and Associated Physician Practices is amultiple site organization consisting of ambulatory clinics and hospital sitesin [place], [place], [place] and [place]. This disclosure is being madepursuant to the Care Everywhere program and may not contain all information available regarding this patient. Last updated 17.[facility] [employer] Social History Tobacco Use Types Packs/Day Years Used Date Smoking Tobacco: Never Assessed Sex and Gender Information Value Date Recorded Sex Assigned at Not on file Gender Identity Not on file Sexual Orientation Not on file Plan of Treatment Health Maintenance Due Date Last Done Comments COLOGUARD (AGES 45-75) - COL ON CA SCREENING 1961 COLON MONITORING 1961 COLONOSCOPY - COLON CA SCREENING 1961 CT COLONOGRAPHY - COLON CA SCREENING 1961 Colorectal Cancer Screening 1961 FIT - COLON CA SCREENING 1961 FLEX SIG - COLON CA SCREENING 1961 LIPID TESTING 1961 MAMMOGRAM 1961 PAP SMEAR 1961 HIV SCREENING 1976 HEPATITIS C SCREENING 12/18/1979 DTAP/TDAP/TD VACCINES (1 - Tdap) 1980 PNEUMOCOCCAL VACCINE 50+ (1 of 1 - PCV) 12/23/2011 ZOSTER VACCINE (1 of 2) 12/23/2011 COVID-19 VACCINE (1 - 2023-2 5 season) 2023 INFLUENZA VACCINE (#1) 2023 DEPRESSION SCREENING 04/04/2024 Respiratory Syncytial Virus (RSV) Vaccine Pt: or over 60 yrs (1 - 1-dose 75+ series) 2036 HEPATITIS B VACCINE Aged Out No longe r eligible based on patient's age to complete this topic HIB VACCINE Aged Out No longer eligi ble based on patient's age to complete this topic HPV VACCINE Aged Out No longer eligi ble based on patient's age to complete this topic MENINGOCOCCAL (Group B) VACCINE Aged Out No longer eligible based on patient's age to complete this topic MENINGOCOCCAL VACCINE Aged Out No bear jeff eligible based on patient's age to complete this topic PNEUMOCOCCAL VACCINE Aged Out No long er eligible based on patient's age to complete this topic
--- OUTSIDE RECORDS SUMMARY | 2024-05-24 07:21 | XMS_ITS ---
Author Organization [facility] Address [address] [place], [place] [id number] Care Team Providers Care Professional Sports Scout Name Role Phone CARMEN HUNT Unavailable [phone] [place] Unavailable Unavailable REASON FOR VISIT The nail borders don't hurt, but they are dry and form scaling and irritation Medications Medication SIG (Take, Route, Frequency, Duration) Notes Start Date End Date Status Lopreeza 0.5/0.1 28 Day Pack ORAL Lopreeza 0.5/0.1 28 Day PackOriginal MedicationLopreeza 0.5/0.1 28 Day Pack *Reorder from [employer] for eRx and Interaction Alerts* 02/24/2015 Active Medrol Dosepak ORAL Medrol DosepakOr iginal MedicationMedrol Dosepak *Reorder from [employer] for eRx and Interaction Alerts* 02/24/2015 Active omeprazole 20 MG Delayed Release Oral Capsule ORAL omeprazole 20 MG Delayed Release Oral CapsuleOriginal Medicationomeprazole 20 MG Delayed Release Oral Capsule *Reorder from [employer] for eRx and Interaction Alerts* 02/24/2015 Active Neomycin-Polymyx in-HC 3.5-04434-3 1-2 drops to affected area topical twice a day for 10 days one bottle of otic solution 06/20/2023 Active alprazolam 1 MG Oral Tablet [Xanax] ORAL alprazolam 1 MG Oral Tablet [Xanax]Original Medicationalprazolam 1 MG Oral Tablet [Xanax] *Reorder from [facility] for eRx and Interaction Alerts* 02/24/2015 Active amlodipine 2.5 MG Oral Tablet ORAL amlodipine 2.5 MG Oral TabletOriginal Medicationamlodipine 2.5 MG Oral Tablet *[facility] Interaction Alert[facility]* 02/24/2015 Active citalopram 10 MG Oral Tablet ORAL citalopram 10 MG Oral TabletOriginal Medicationcitalopram 10 MG Oral Tablet *Reorder from [facility] for eRx and Interaction Alerts* 02/24/2015 Active Vital Signs Height 62.00 in 07/18/2023 Weight 225 lbs 07/18/2023 BMI 41.15 kg/m2 07/18/2023 Height-cm 157.48 cm 07/18/2023 Weight-kg 102.06 kg 07/18/2023 Encounters Encounter Location Date Provider Diagnosis [facility] [address] [place] [id number] 07/18/2023 CARMEN HUNT Ingrowing nail L60.0 and Encounter for other specified surgical aftercare Z48.89 Assessments Encounter Date Diagnosis (ICD Code) Assessment Notes Treatment Notes Treatment Clinical Notes Section Notes 07/18/2023 Ingrowing nail (ICD-10 - L60.0) Debrided hyperkeratotic skin without incident. Recommend OTC cortain CREAM not ointment nightly 07/18/2023 Encounter for other specified surgical aftercare (ICD-10 - Z48.89) Plan Of Treatment Treatment Notes Assessment Notes Ingrowing nail Debrided hyperkeratotic skin without incident. Recommend OTC cortain CREAM not ointment nightly Next Appt Details Follow Up: 1 Week, Reason: M atrixectomy check Progress Notes * ANGEL VALDERRAMA LDOB:[birth year] (62 yo F)Acc No.[id number]:07/18/2023 Patient: Judit ANGEL JACOBSON Provider: Leslie Hunt DPM :1960 A ge:62 Y S ex:Female Date:07/18/2023 Address:[address] [place], [place] [id number] Subjective: * Chief Complaints: * 1 . The nail borders don't hurt, but they are dry and form scaling and irritation. * HPI: H PI: Follow Up Visit Judit sinclair presents for follow up visit for nail surgery , - bilateral. P yahir states their problem is,improving., Pt states the left is still operator brandy at the base of the nail. M A: As. * Medical History: * Medications: T aking alprazolam 1 MG Oral Tablet [Xanax] ORAL , Notes to Pharmacist: alprazolam 1 MG Oral Tablet [Xanax]Original Medicationalprazolam 1 MG Oral Tablet [Xanax] *Reorder from [facility] for eRx and Interaction Alerts*, Taking amlodipine 2.5 MG Oral Tablet ORAL , Notes to Pharmacist: amlodipine 2.5 MG Oral TabletOriginal Medicationamlodipine 2.5 MG Oral Tablet *Reorder from [facility] for eRx and Interaction Alerts*, Taking citalopram 10 MG Oral Tablet ORAL , Notes to Pharmacist: citalopram 10 MG Oral TabletOriginal Medicationcitalopram 10 MG Oral Tablet *Reorder from [facility] for eRx and Interaction Alerts*, Taking Lopreeza 0.5/0.1 28 Day Pack ORAL , Notes to Pharmacist: Lopreeza 0.5/0.1 28 Day PackOriginal MedicationLopreeza 0.5/0.1 28 Day Pack *Reorder from [facility] for eRx and Interaction Alerts*, Taking Medrol Dosepak ORAL , Notes to Pharmacist: Medrol DosepakOriginal MedicationMedrol Dosepak *Reorder from [facility] for eRx and Interaction Alerts*, Taking omeprazole 20 MG Delayed Release Oral Capsule ORAL , Notes to Pharmacist: omeprazole 20 MG Delayed Release Oral CapsuleOriginal Medicationomeprazole 20 MG Delayed Release Oral Capsule *Reorder from [facility] for eRx and Interaction Alerts*, Taking Cjxdmjur-Ccoxepxqi-RV 3.5-37709-1 Suspension 1-2 drops to affected area topical twice a day , Notes to Pharmacist: one bottle of otic solution Objective: * Vitals: W t:225lbs, Wt-k.06 kg, Ht: 62.00 in, Ht-cm: 157.48 cm, BMI:41.15Index, Body Surface Area: 2.11. * Examination: D ermatologic: Ingrown Nail N ail surgery site is healing well. No signs of infection. There is hyperkeratotic skin in the nail folds. Assessment: * Assessment: 1. I ngrowing nail - L60.0 (Primary) 2 . E ncounter for other specified surgical aftercare - Z48.89 Plan: * Treatment: * Procedure Codes: 9 9024 POSTOP FOLLOW-UP VISIT * Follow Up: 1 Week (Reason: Matrixectomy check) * Billing Information: * Visit Code: * Procedure Codes: 06329 POSTOP FOLLOW-UP VISIT. * Sign off status: Completed true * Provider: Leslie Hunt DPM Date: 0 07/18/2023 Generated for Dony cannon/Noam/Joaquinaitting on: 0 05/24/2024 07:20 AM IT ADMIN History and Physical Notes * HPI (History of Present Illness) Category Sub-Category Detail Notes Category Not es HPI Follow Up Visit Patient presents for follow up visit for nail surgery , - bilateral. Patient states their problem is,improving., Pt states the left is still operator brandy at the base of the nail. MA: As Examination Category Sub-Category Detail Notes Category Not es Dermatologic Ingrown Nail Nail surgery sit e is healing well. No signs of infection. There is hyperkeratotic skin in the nail folds
--- OUTSIDE RECORDS SUMMARY | 2024-05-24 07:21 | XMS_ITS | Referral Summary ---
Author Organization [facility] Address [address] [place] [address] Care Team Providers Care Manager Diabetes Name Role Phone Unavailable Primary Care Provider Unavailabl e Source Comments [facility],non-[facility] and Associated Physician Practices is amultiple site organization consisting of ambulatory clinics and hospital sitesin [place], [place], [place] and [place]. This disclosure is being madepursuant to the Care Everywhere program and may not contain all information available regarding this patient. Last updated 17.[facility] Social History Tobacco Use Types Packs/Day Years Used Date Smoking Tobacco: Never Assessed Sex and Gender Information Value Date Recorded Sex Assigned at Not on file Gender Identity Not on file Sexual Orientation Not on file Plan of Treatment Not on file
--- OUTSIDE RECORDS SUMMARY | 2024-05-24 07:21 | XMS_ITS ---
Author Organization [facility] Address [address] [place], [place] [id number] Care Team Providers Care Patient Service Associate Name Role Phone CARMEN HUNT Unavailable [phone] [place] Unavailable Unavailable REASON FOR VISIT The toe has finally healed and is doing well Medications Medication SIG (Take, Route, Frequency, Duration) Notes Start Date End Date Status omeprazole 20 MG Delayed Release Oral Capsule ORAL omeprazole 20 MG Delayed Release Oral CapsuleOriginal Medicationomeprazole 20 MG Delayed Release Oral Capsule *Reorder from [employer] for eRx and Interaction Alerts* 02/24/2015 Active Medrol Dosepak ORAL Medrol DosepakOr iginal MedicationMedrol Dosepak *Reorder from [employer] for eRx and Interaction Alerts* 02/24/2015 Active Neomycin-Polymyx in-HC 3.5-74360-4 1-2 drops to affected area topical twice a day for 10 days one bottle of otic solution 06/20/2023 Active amlodipine 2.5 MG Oral Tablet ORAL amlodipine 2.5 MG Oral TabletOriginal Medicationamlodipine 2.5 MG Oral Tablet *Reorder from [employer] for eRx and Interaction Alerts* 02/24/2015 Active alprazolam 1 MG Oral Tablet [Xanax] ORAL alprazolam 1 MG Oral Tablet [Xanax]Original Medicationalprazolam 1 MG Oral Tablet [Xanax] *Reorder from [employer] for eRx and Interaction Alerts* 02/24/2015 Active Lopreeza 0.5/0.1 28 Day Pack ORAL Lopreeza 0.5/0.1 28 Day PackOriginal MedicationLopreeza 0.5/0.1 28 Day Pack *Reorder from [facility] for eRx and Interaction Alerts* 02/24/2015 Active citalopram 10 MG Oral Tablet ORAL citalopram 10 MG Oral TabletOriginal Medicationcitalopram 10 MG Oral Tablet *Reorder from [facility] for eRx and Interaction Alerts* 02/24/2015 Active Vital Signs Height 62.00 in 08/15/2023 Weight 225 lbs 08/15/2023 BMI 41.15 kg/m2 08/15/2023 Height-cm 157.48 cm 08/15/2023 Weight-kg 102.06 kg 08/15/2023 Encounters Encounter Location Date Provider Diagnosis [facility] [address] [place] [phone] 08/15/2023 CARMEN HUNT Ingrowing nail L60.0 and Encounter for other specified surgical aftercare Z48.89 Assessments Encounter Date Diagnosis (ICD Code) Assessment Notes Treatment Notes Treatment Clinical Notes Section Notes 08/15/2023 Ingrowing nail (ICD-10 - L60.0) Post-op Matrixectomy The patient will monitor this area for any signs of recurrence and contact the office with any problems. Patient will follow-up on an as-needed basis 08/15/2023 Encounter for other specified surgical aftercare (ICD-10 - Z48.89) Plan Of Treatment Treatment Notes Assessment Notes Ingrowing nail Post-op Matrixectomy The patient will monitor this area for any signs of recurrence and contact the office with any problems. Patient will follow-up on an as-needed basis Next Appt Details Follow Up: prn, Reason: Progress Notes * ANGEL VALDERRAMA LDOB:[birth year] (62 yo F)Acc No.[id number]:08/15/2023 Patient: ANGEL FLORES Provider: Leslie Hunt DPM :1960 A ge:62 Y S ex:Female Date:08/15/2023 Address:[address] [place], [place] [id number] Subjective: * Chief Complaints: * 1 . The toe has finally healed and is doing well. * HPI: H PI: Follow Up Visit P atient presents for follow up visit for nail surgery , - bilateral. , Patient states their problem is, improving. Pt states she is healed and no longer having pain. Pt complains of some built up skin on the medial side of her right great that she would like trimmed out. , MA: As. * ROS: G eneral / Constitutional: Patient denies c hills, fever, weakness, night sweats. M usculoskeletal: Patient denies c hildhood foot problems, weakness. ? P eripheral Vascular: Patient denies u lceration of feet, cold extremities. ? S kin: Patient denies u lcerations, discoloration. ? N eurologic: Patient denies b alance difficulty, confusion, difficulty speaking, dizziness. * Medical History: * Medications: T toño alprazolam 1 MG Oral Tablet [Xanax] ORAL , Notes to Pharmacist: alprazolam 1 MG Oral Tablet [Xanax]Original Medicationalprazolam 1 MG Oral Tablet [Xanax] *Reorder from [facility] for eRx and Interaction Alerts*, Taking amlodipine 2.5 MG Oral Tablet ORAL , Notes to Pharmacist: amlodipine 2.5 MG Oral TabletOriginal Medicationamlodipine 2.5 MG Oral Tablet *Reorder from [facility] for eRx and Interaction Alerts*, Taking citalopram 10 MG Oral Tablet ORAL , Notes to Pharmacist: citalopram 10 MG Oral TabletOriginal Medicationcitalopram 10 MG Oral Tablet *Reorder from [facility] for eRx and Interaction Alerts*, Taking Lopreeza 0.5/0.1 28 Day Pack ORAL , Notes to Pharmacist: Lopreeza 0.5/0.1 28 Day PackOriginal MedicationLopreeza 0.5/0.1 28 Day Pack *Reorder from [facility] for eRx and Interaction Alerts*, Taking Medrol Dosepak ORAL , Notes to Pharmacist: Medrol DosepakOriginal MedicationMedrol Dosepak *Reorder from [facility] for eRx and Interaction Alerts*, Taking omeprazole 20 MG Delayed Release Oral Capsule ORAL , Notes to Pharmacist: omeprazole 20 MG Delayed Release Oral CapsuleOriginal Medicationomeprazole 20 MG Delayed Release Oral Capsule *Reorder from [employer] for eRx and Interaction Alerts*, Taking [id number]-Vdtskwjis-ZG 3.5-68783-7 Suspension 1-2 drops to affected area topical twice a day , Notes to Pharmacist: one bottle of otic solution Objective: * Vitals: W t:225lbs, Wt-k.06 kg, Ht: 62.00 in, Ht-cm: 157.48 cm, BMI:41.15Index, Body Surface Area: 2.11. * Examination: C onstitutional: Constitutional T he patient is awake, alert, well developed, well groomed and well nourished.. D ermatologic: Skin findings: S kin is warm, dry, supple with no breaks in the skin.. V ascular: Dorsalis pedis pulse: 2 /4, bilateral. Posterior tibial pulse: 2 /4, bilaterally. Capillary refill: l ess than 3 seconds. Edema: N o edema, bilateral. N eurologic: Gross sensation G ross sensation is intact to light touch..? M usculoskeletal: Muscle Strength M uscle strength is 5/5 in regards to dorsiflexion, plantarflexion, inversion, and eversion in bilateral lower extremities.. ? Assessment: * Assessment: 1. I ngrowing nail - L60.0 (Primary) 2 . E ncounter for other specified surgical aftercare - Z48.89 Plan: * Treatment: * Procedure Codes: 9 9024 POSTOP FOLLOW-UP VISIT * Follow Up: p rn * Billing Information: * Visit Code: * Procedure Codes: 89601 POSTOP FOLLOW-UP VISIT. * Sign off status: Completed true * Provider: Leslie Hunt DPM Date: 0 08/15/2023 Generated for Dony cannon/Noam/Ryan on: 0 05/24/2024 07:20 AM METEOROLOGICAL OBSERVER History and Physical Notes * HPI (History of Present Illness) Category Sub-Category Detail Notes Category Not es HPI Follow Up Visit Patient presents for follow up visit for nail surgery , - bilateral. , Patient states their problem is, improving. Pt states she is healed and no longer having pain. Pt complains of some built up skin on the medial side of her right great that she would like trimmed out. , MA: As Examination Category Sub-Category Detail Notes Category Not es Dermatologic Skin findings: Skin is warm, dr y, supple with no breaks in the skin. Neurologic Gross sensation Gross sensation is intact to light touch. Vascular Dorsalis pedis pulse: 2/4, bilateral Edema: No edema, bilateral Capillary refill: less than 3 seconds Posterior tibial pulse: 2/4, bilaterally Musculoskeletal Muscle Strength Muscle strength is 5/5 in regards to dorsiflexion, plantarflexion, inversion, and eversion in bilateral lower extremities. Constitutional Constitutional The patient is a wake, alert, well developed, well groomed and well nourished.
--- OUTSIDE RECORDS SUMMARY | 2024-05-24 07:21 | XMS_ITS | Encounter Summary ---
Author Organization [facility] Address [address] [place] [address] Care Team Providers Care Dramatic Arts Historian Name Role Phone Unavailable Primary Care Provider Unavailabl e Encounter Details Date Type Department Care Team (Late st Contact Info) Description 09/07/2019 Lab Requisition [facility] DermPath Lab [address] [place] [id number] Giorgio Callaway MD [address] [place] [place] [address] Social History Tobacco Use Types Packs/Day Years Used Date Smoking Tobacco: Never Assessed Sex and Gender Information Value Date Recorded Sex Assigned at Not on file Gender Identity Not on file Sexual Orientation Not on file documented as of this encounter Plan of Treatment Not on file documented as of this encounter Procedures Procedure Name Priority Date/Time Associated Diagnosis Comments DERMATOPATHOLOGY Routine 09/05/2019 12:0 0 AM CDT documented in this encounter Results * DERMATOPATHOLOGY (09/05/2019 12:00 AM CDT) Case Report Dermatopathology Report Case: [id number] Authorizing Provider: Giorgio Callaway MD Collected: 09/05/2019 12:00 AM Ordering Location: [facility] DermPath Lab Received: 09/07/2019 07:01 AM Pathologist: Belkis Chang MD Specimens: A) - Skin, mid back B) - Skin, left inner thigh 0 12:52 PM CDT DERMATOPATHOLOGY LABORATORY Final Diagnosis Specimen A. SKIN, mid back: BENIGN VERRUCOUS KERATOSIS, INFLAMED (L82.1) Specimen B. 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 Path # [id number]. B: Nevus. Path # [id number]. 0 12:52 PM CDT DERMATOPATHOLOGY LABORATORY Gross Description Specimen A: Received is one formalin filled container labeled with the patient's name and designated mid back. The specimen consists of a shave biopsy measuring [id number]. Jar 0. Specimen B: Received is one formalin filled container labeled with the patient's name and designated left inner thigh. The specimen consists of a shave biopsy measuring [id number]. Jar 0. 0 12:52 PM T DERMATOPATHOLOGY LABORATORY Microscopic Description Specimen A. SKIN, mid back: Sections show hyperkeratosis, papillomatosis, hypergranulosis, and acanthosis. Inflammatory cells are present within the dermis. These histological findings can be seen in a verruca vulgaris or a seborrheic keratosis. Specimen B. SKIN, left inner thigh: There is a gently folded epidermis surrounding a connective tissue core in which fat and collagen are intermingled. 0 12:52 PM CDT DERMATOPATHOLOGY LABORATORY Disclaimer An external and internal positive and negative controls are appropriate for the histochemical, immunohistochemical and immunofluorescence stain(s) in this case (if any), except where stated explicitly. The performance characteristics of the stain(s) cited in this report were developed and its performance characteristic determined by the Dermatopathology Laboratory at [facility], directed by Dr. Jay Hackett. These tests need not be, and therefore are not, approved by the [place] Food and Drug Administration. The tests are used for clinical purposes. Billing Codes Specimen Charges Stain Charges 00061 81105 1 1 0 12:52 PM CDT DERMATOPATHOLOGY LABORATORY Embedded Images 0 12:52 PM CDT DERMATOPATHOLOGY LABORATORY Pathology/Cytology TISSUE SPECIMEN FROM SKIN / Unknown 09/05/2019 09/07/2019 7:01 AM CDT Miscellaneous samples (specimen) TISSUE SPECIMEN FROM SKIN / Unknown 09/05/2019 09/07/2019 7:01 AM CDT Giorgio Callaway MD LAB - PATHOLOGY/CYTO LOGY ORDERABLES DERMATOPATHOLOGY LABORATORY [facility] - Department of Dermatology [facility]/[address] [phone] documented in this encounter Visit Diagnoses Not on filedocumented in this encounter
--- OUTSIDE RECORDS SUMMARY | 2024-05-24 07:21 | XMS_ITS | Patient Health Record ---
Author Organization [facility] Address [address] [place], [place] [id number] Care Team Providers Care Oil Extractor Name Role Phone CARMEN HUNT Unavailable [phone] [place] Unavailable Unavailable Allergies Allergen (clinical drug ingredient) Drug/Non Drug Allergy documented on EMR Reaction Allergy Type Onset Date Status lisinopril Lisinopril Unknown Drug Allergy 08/24/2021 acti ve Reason For Referral No Information Medications Medication SIG (Take, Route, Frequency, Duration) Notes Start Date End Date Status omeprazole 20 MG Delayed Release Oral Capsule ORAL omeprazole 20 MG Delayed Release Oral CapsuleOriginal Medicationomeprazole 20 MG Delayed Release Oral Capsule *Reorder from [facility] for eRx and Interaction Alerts* 02/24/2015 Active Medrol Dosepak ORAL Medrol DosepakOr iginal MedicationMedrol Dosepak *[facility] and Interaction Alerts* 02/24/2015 Active Lopreeza 0.5/0.1 28 Day Pack ORAL Lopreeza 0.5/0.1 28 Day PackOriginal MedicationLopreeza 0.5/0.1 28 Day Pack *Reorder from [facility] for eRx and Interaction Alerts* 02/24/2015 Active citalopram 10 MG Oral Tablet ORAL citalopram 10 MG Oral TabletOriginal Medicationcitalopram 10 MG Oral Tablet *Reorder from [facility] for eRx and Interaction Alerts* 02/24/2015 Active Neomycin-Polymyx in-HC 3.5-21026-2 1-2 drops to affected area topical twice a day for 10 days one bottle of otic solution 06/20/2023 Active amlodipine 2.5 MG Oral Tablet ORAL amlodipine 2.5 MG Oral TabletOriginal Medicationamlodipine 2.5 MG Oral Tablet *Reorder from [facility] for eRx and Interaction Alerts* 02/24/2015 Active alprazolam 1 MG Oral Tablet [Xanax] ORAL alprazolam 1 MG Oral Tablet [Xanax]Original Medicationalprazolam 1 MG Oral Tablet [Xanax] *Reorder from [facility] for eRx and Interaction Alerts* 02/24/2015 Active Vital Signs Height-cm 157.48 cm 08/15/2023 Weight-kg 102.06 kg 08/15/2023 Height 62.00 in 08/15/2023 Weight 225 lbs 08/15/2023 BMI 41.15 kg/m2 08/15/2023 Encounters Encounter Location Date Provider Diagnosis [facility] [place] [address] [place] [address] [id number] 05/31/2023 CARMEN SNOOK Ingrowing nail L60.0 ; Tinea unguium B35.1 ; Pain in right toe(s) M79.674 and Pain in left toe(s) M79.675 [facility] [place] [address] [place] [address] [id number] 06/07/2023 CARMEN SNOOK Ingrowing nail L60.0 and Encounter for other specified surgical aftercare Z48.89 [facility] [place] [facility] [address] [place] [address] [phone] 06/20/2023 CARMEN SNOOK Ingrowing nail L60.0 and Encounter for other specified surgical aftercare Z48.89 [facility] [place] [address] [place] [address] [id number] 07/04/2023 CARMEN SNOOK Ingrowing nail L60.0 and Encounter for other specified surgical aftercare Z48.89 [facility] [place] [address] [place] [address] [phone] 07/18/2023 CARMEN SNOOK Ingrowing nail L60.0 and Encounter for other specified surgical aftercare Z48.89 [facility] [place] [address] [place], [place] [phone] 08/15/2023 CARMEN MALIKK Ingrowing nail L60.0 and Encounter for other specified surgical aftercare Z48.89 Assessments Encounter Date Diagnosis (ICD Code) Assessment Notes Treatment Notes Treatment Clinical Notes Section Notes 06/07/2023 Ingrowing nail (ICD-10 - L60.0) Post-op Matrixectomy The patient will continue foot soaks and covering with a dry bandage until drainage has stopped. The patient will monitor this area for any signs of recurrence and contact the office with any problems. Patient will follow-up on an as-needed basis. 06/07/2023 Encounter for other specified surgical aftercare (ICD-10 - Z48.89) 06/20/2023 Ingrowing nail (ICD-10 - L60.0) Post-op Matrixectomy Patient will apply cortisporin otic solution to toes b.i.d. 06/20/2023 Encounter for other specified surgical aftercare (ICD-10 - Z48.89) 07/04/2023 Ingrowing nail (ICD-10 - L60.0) Post-op Matrixectomy The patient will continue foot soaks and covering with a dry bandage until drainage has stopped. The patient will monitor this area for any signs of recurrence and contact the office with any problems. Patient will follow-up in one week 07/04/2023 Encounter for other specified surgical aftercare (ICD-10 - Z48.89) 07/18/2023 Ingrowing nail (ICD-10 - L60.0) Debrided hyperkeratotic skin without incident. Recommend OTC cortain CREAM not ointment nightly 07/18/2023 Encounter for other specified surgical aftercare (ICD-10 - Z48.89) 08/15/2023 Ingrowing nail (ICD-10 - L60.0) Post-op Matrixectomy The patient will monitor this area for any signs of recurrence and contact the office with any problems. Patient will follow-up on an as-needed basis 08/15/2023 Encounter for other specified surgical aftercare (ICD-10 - Z48.89) 05/31/2023 Tinea unguium (ICD-10 - B35.1) FUNGAL TOENAILS: Discussed various treatment options for fungal toenails including debridement, topical antifungals, oral antifungals, toenail avulsion, or toenail matrixectomy. 05/31/2023 Ingrowing nail (ICD-10 - L60.0) Matrixectomy of Nail Border: I discussed various treatment options to the patient for their toenail issue. I discussed removal of the offending nail border and chemical matrixectomy to prevent regrowth. The patient decided on permanent removal of the nail border. The consent was signed and placed in the patients chart and all questions were answered. Following skin prep, the toe was injected with 3ccs of a 1:1 mixture of 0.5% marcaine plain and 1% lidocaine plain. A digital tourniquet was applied and the offending nail border and nail matrix were removed. Three applications of 89% phenol for 30 seconds each, were applied to the nail matrix to prevent regrowth. The digital tourniquet was released and the toe was cleansed with isopropyl alcohol. A dry sterile compressive dressing was applied and the patient was given soaking instructions. The medial and lateral border of the right hallux was treated. The medial border of the left hallux was treated 05/31/2023 Pain in right toe(s) (ICD-10 - M79.674) 05/31/2023 Pain in left toe(s) (ICD-10 - M79.675) Plan Of Treatment No Information Insurance Providers Payer Name Payer Address Payer Phone Subscriber Number Group Number Insured Name Patient Relationship to Insured Coverage Start Date Coverage End Date [place] [employer] [facility] [address] [address] [place], [place] [id number] ANGEL VALDERRAMA Self - patient is the insured
--- OUTSIDE RECORDS SUMMARY | 2024-05-24 07:21 | XMS_ITS | Patient Health Summary ---
Author Organization [facility] Address [address] [facility] [place] [address] Care Team Providers Care Squad Boss Name Role Phone Unavailable Primary Care Provider Unavailabl e Note from [facility],non-owned Affiliates and Associated Physician Practices is amultiple site organization consisting of ambulatory clinics and hospital sitesin [place] and [place]. This disclosure is being madepursuant to the Care Everywhere program and may not contain all informatio navailable regarding this patient. Last updated 17.[facility] Social History Tobacco Use Types Packs/Day Years Used Date Smoking Tobacco: Never Assessed Sex and Gender Information Value Date Recorded Sex Assigned at Not on file Gender Identity Not on file Sexual Orientation Not on file Procedures * DERMATOPATHOLOGY(Performed 09/05/2019) Results * DERMATOPATHOLOGY (09/05/2019 12:00 AM CDT) Case Report Dermatopathology Report Case: [id number] Authorizing Provider: Giorgio Callaway MD Collected: 09/05/2019 12:00 AM Ordering Location: [facility] DermPath Lab Received: 09/07/2019 07:01 AM [...] LABORATORY Clinical History A: Nevus. Path # [id number]. B: Nevus. Path # [id number]. 0 12:52 PM CDT DERMATOPATHOLOGY LABORATORY Gross Description Specimen A: Received is one formalin filled container labeled with the patient's name and designated mid back. The specimen consists of a shave biopsy measuring [id number]. Jar 0. Specimen B: Received is one formalin filled container labeled with the patient's name and designated left inner thigh. The specimen consists of a shave biopsy measuring [id number]. Jar 0. 0 12:52 PM CDT DERMATOPATHOLOGY LABORATORY Microscopic Description Specimen A. SKIN, [...] characteristic determined by the Dermatopathology Laboratory at [facility], directed by Dr. Jay Hackett. These tests need not be, and therefore are not, approved by the [place] Food and Drug Administration. The tests are used for clinical purposes. Billing Codes Specimen Charges Stain Charges 35606 91828 1 1 0 12:52 PM CDT DERMATOPATHOLOGY LABORATORY Embedded Images 0 12:52 PM CDT DERMATOPATHOLOGY LABORATORY Pathology/Cytology TISSUE SPECIMEN FROM SKIN / Unknown 09/05/2019 09/07/2019 7:01 AM CDT Miscellaneous samples (specimen) TISSUE SPECIMEN FROM SKIN / Unknown 09/05/2019 09/07/2019 7:01 AM CDT Giorgio Callaway MD LAB - PATHOLOGY/CYTO LOGY ORDERABLES DERMATOPATHOLOGY LABORATORY [facility] - Department of Dermatology [facility] [place]/[address] [place] [address], [facility] [phone]
--- OUTSIDE RECORDS SUMMARY | 2024-05-24 07:22 | XMS_ITS ---
Author Organization [facility] Address [address] [place], [place] [id number] Care Team Providers Care Eye Dropper Assembler Name Role Phone CARMEN HUNT Unavailable [phone] [place] Unavailable Unavailable REASON FOR VISIT Patient returns to the office following toenail surgery. She stopped the foot soaks but the skin remains very dry and the nail borders are painful Medications Medication SIG (Take, Route, Frequency, Duration) Notes Start Date End Date Status Medrol Dosepak ORAL Medrol DosepakOr iginal MedicationMedrol Dosepak *Reorder from [employer] for eRx and Interaction Alerts* 02/24/2015 Active Lopreeza 0.5/0.1 28 Day Pack ORAL Lopreeza 0.5/0.1 28 Day PackOriginal MedicationLopreeza 0.5/0.1 28 Day Pack *Reorder from [employer] for eRx and Interaction Alerts* 02/24/2015 Active omeprazole 20 MG Delayed Release Oral Capsule ORAL omeprazole 20 MG Delayed Release Oral CapsuleOriginal Medicationomeprazole 20 MG Delayed Release Oral Capsule *Reorder from [employer] for eRx and Interaction Alerts* 02/24/2015 Active citalopram 10 MG Oral Tablet ORAL citalopram 10 MG Oral TabletOriginal Medicationcitalopram 10 MG Oral Tablet *Reorder from [employer] for eRx and Interaction Alerts* 02/24/2015 Active Neomycin-Polymyx in-HC 3.5-68697-2 1-2 drops to affected area topical twice a day for 10 days one bottle of otic solution 06/20/2023 Active alprazolam 1 MG Oral Tablet [Xanax] ORAL alprazolam 1 MG Oral Tablet [Xanax]Original Medicationalprazolam 1 MG Oral Tablet [Xanax] *Reorder from [facility] for eRx and Interaction Alerts* 02/24/2015 Active amlodipine 2.5 MG Oral Tablet ORAL amlodipine 2.5 MG Oral TabletOriginal Medicationamlodipine 2.5 MG Oral Tablet *Reorder from [facility] for eRx and Interaction Alerts* 02/24/2015 Active Vital Signs Height 62.00 in 07/04/2023 Weight 225 lbs 07/04/2023 BMI 41.15 kg/m2 07/04/2023 Height-cm 157.48 cm 07/04/2023 Weight-kg 102.06 kg 07/04/2023 Encounters Encounter Location Date Provider Diagnosis [facility] [place] [address] [place] [phone] 07/04/2023 CARMEN MALIKK Ingrowing nail L60.0 and Encounter for other specified surgical aftercare Z48.89 Assessments Encounter Date Diagnosis (ICD Code) Assessment Notes Treatment Notes Treatment Clinical Notes Section Notes 07/04/2023 Ingrowing nail (ICD-10 - L60.0) Post-op [...] Ingrowing nail Post-op Matrixectomy The patient will continue foot soaks and covering with a dry bandage until drainage has stopped. The patient will monitor this area for any signs of recurrence and contact the office with any problems. Patient will follow-up in one week Next Appt Details Follow Up: 2 Weeks, Reason: Post-op nail check Progress Notes * ANGEL VALDERRAMA LDOB:[birth year] (62 yo F)Acc No.[id number]:07/04/2023 Patient: ANGEL FLORES Provider: Leslie Hunt DPM :1960 A ge:62 Y S ex:Female Date:07/04/2023 Address:[address] [place], [place] [id number] Subjective: * Chief Complaints: * 1 . Patient returns to the office following toenail surgery. She stopped the foot soaks but the skin remains very dry and the nail borders are painful. * HPI: H PI: Follow Up Visit Judit sinclair presents for follow up visit for nail surgery , - bilateral. Judit sinclair states their problem is,unchanged., Pt states the right looks bad but does not hurt. Pt states the left looks good but hurts like it is still ingrown. M A: As. * Medical History: * Medications: T aking alprazolam 1 MG Oral Tablet [Xanax] ORAL , Notes to Pharmacist: alprazolam 1 MG Oral Tablet [Xanax]Original Medicationalprazolam 1 MG Oral Tablet [Xanax] *Reorder from [facility] for eRx and Interaction Alerts*, Taking amlodipine 2.5 MG Oral Tablet ORAL , Notes to Pharmacist: amlodipine 2.5 MG Oral TabletOriginal Medicationamlodipine 2.5 MG Oral Tablet *Reorder from [facility] for eRx and Interaction Alerts*, Taking citalopram 10 MG Oral Tablet ORAL , Notes to Pharmacist: citalopram 10 MG Oral TabletOriginal Medicationcitalopram 10 MG Oral Tablet *Reorder from [facility] for eRx and Interaction Alerts*, Taking Lopreeza 0.5/0.1 28 Day Pack ORAL , Notes to Pharmacist: Lopreeza 0.5/0.1 28 Day PackOriginal MedicationLopreeza 0.5/0.1 28 Day Pack *Reorder from [facility] for eRx and Interaction Alerts*, Taking Medrol Dosepak ORAL , Notes to Pharmacist: Medrol DosepakOriginal MedicationMedrol Dosepak *Reorder from [facility] for eRx and Interaction Alerts*, Taking omeprazole 20 MG Delayed Release Oral Capsule ORAL , Notes to Pharmacist: omeprazole 20 MG Delayed Release Oral CapsuleOriginal Medicationomeprazole 20 MG Delayed Release Oral Capsule *Reorder from [employer] for eRx and Interaction Alerts*, Taking Zisqbolz-Iocfsteqd-JD 3.5-70979-7 Suspension 1-2 drops to affected area topical twice a day , Notes to Pharmacist: one bottle of otic solution Objective: * Vitals: W t:225lbs, Wt-k.06 kg, Ht: 62.00 in, Ht-cm: 157.48 cm, BMI:41.15Index, Body Surface Area: 2.11. * Examination: D ermatologic: Ingrown Nail N ail surgery site is healing well. No signs of infection. The nail folds of the left and right hallux are very xerotic. There is dried sanguinous material and hyperkeratotic material in the nail folds. After debridement, the patient noted immense relief. Assessment: * Assessment: 1. I ngrowing nail - L60.0 (Primary) 2 . E ncounter for other specified surgical aftercare - Z48.89 Plan: * Treatment: * Procedure Codes: 9 9024 POSTOP FOLLOW-UP VISIT * Follow Up: 2 Weeks (Reason: Post-op nail check) * Billing Information: * Visit Code: * Procedure Codes: 68470 POSTOP FOLLOW-UP VISIT. * Sign off status: Completed true * Provider: Leslie Hunt DPM Date: 0 07/04/2023 Generated for Dony cannon/Noam/Ryan on: 0 05/24/2024 07:21 AM PRESENTATION DESIGNER History and Physical Notes * HPI (History of Present Illness) Category Sub-Category Detail Notes Category Not es HPI Follow Up Visit Patient presents for follow up visit for nail surgery , - bilateral. Patient states their problem is,unchanged., Pt states the right looks bad but does not hurt. Pt states the left looks good but hurts like it is still ingrown. MA: As Examination Category Sub-Category Detail Notes Category Not es Dermatologic Ingrown Nail Nail surgery sit e is healing well. No signs of infection. The nail folds of the left and right hallux are very xerotic. There is dried sanguinous material and hyperkeratotic material in the nail folds. After debridement, the patient noted immense relief
[2024-05-24 10:16] LABS: Alanine Aminotransferase 31 U/L (6-35); Albumin Level 4.2 g/dL (3.5-5.1); Alkaline Phosphatase 84 U/L (38-126); Anion Gap 10 mmol/L (4-12); Aspartate Amino Transferase 26 U/L (14-36); Bilirubin,Total 0.6 mg/dL (0.2-1.3); Blood Urea Nitrogen 19 mg/dL (7-17); Calcium 8.6 mg/dL (8.4-10.2); Carbon Dioxide 25 mmol/L (22-30); Chloride 105 mmol/L (98-107); Cholesterol 232 mg/dL (0-200); Estimated Glomerular Filt Rate > 60; Glucose 109 mg/dL (65-110); HDL Direct 61 mg/dL; Potassium 4.4 mmol/L (3.4-5.0); Sodium 140 mmol/L (137-145); Triglycerides 118 mg/dL (<150)
[2024-05-24 10:26] LABS: LDL Cholesterol Direct 115 mg/dL
[2024-05-24 10:43] LABS: Hemoglobin A1C 6.3 % (<5.7)
== END 2024-05-24 07:12 | disposition home or self-care (01) ==
LOC: ANHIMG 07:17
PROVIDERS: PCP Internal Medicine; Visit Provider Internal Medicine
DX: M47.817 Spondylosis without myelopathy or radiculopathy, lumbosacral region (principal); I10 Essential (primary) hypertension; E78.5 Hyperlipidemia, unspecified; R73.9 Hyperglycemia, unspecified
CPT/HCPCS: 36415; 72100; 80053; 80061; 83036

== ENCOUNTER 2024-06-07 06:42 | Outpatient (CLI) | payer OTHER, SELFPAY ==
--- NOTE | ~2024-06-07 | MR_ITS ---
MRI of the lumbar spine Clinical History: Back pain Technique: Axial T2-weighted images, and sagittal T1-weighted, T2-weighted, and T2 fat-sat images wer e acquired. Findings: There is no fracture or subluxation of the lumbar spine. Vertebral bodies maintain normal h eight and alignment. No suspicious bone marrow signal abnormality seen. At L1-L2, there is no disc bulge or herniation. There is advanced facet arthropathy. No central canal stenosis or neural foraminal narrowing. At L2-L3, there is minimal disc bulge with moderate to advanced facet arthropathy. No central canal s tenosis or neural foraminal narrowing. At L3-L4, there is minimal disc bulge with moderate to advanced facet arthropathy. No central canal s tenosis. There is mild bilateral neural foraminal narrowing. At L4-L5, there is mild disc bulge with advanced facet arthropathy. There is mild central canal steno sis. There is moderate bilateral neural foraminal narrowing. At L5-S1, there is minimal disc bulge and severe facet arthropathy. No central canal stenosis. There is severe left neural foraminal narrowing, and minimal right neural foraminal narrowing. Paravertebral soft tissues are unremarkable. Impression: Moderate degenerative spondylosis at L4-L5 and L5-S1, as detailed above. Mild degenerative change at the upper lumbar spine. Reviewed, dictated and finalized at [facility]. P TANK TENDER Impression: Moderate degenerative spondylosis at L4-L5 and L5-S1, as detailed above. Mild degenerative change at the upper lumbar spine.
--- OUTSIDE RECORDS SUMMARY | 2024-06-07 06:46 | XMS_ITS | Clinical Summary ---
Author Organization [facility] Address [address] [place] [address] Care Team Providers Care Senior Design Engineer Name Role Phone Yash Pena MD Primary [...] to Health Maintenance Insurance R Care Teams Senior Design Engineer Relationship Specialty Start Date End Date Yash Pena MD PCP - General FAMILY PRACTICE 11/20/18
--- OUTSIDE RECORDS SUMMARY | 2024-06-07 06:47 | XMS_ITS | Patient Health Record ---
Author Organization [facility] Address [address] [place], [place] [address] Care Team Providers Care Grinder Needle Tip Name Role Phone CARMEN HUNT Unavailable [phone] [place] Unavailable Unavailable Allergies Allergen (clinical drug ingredient) Drug/Non Drug Allergy documented on EMR Reaction Allergy Type Onset Date Status Lisinopril Unknown Drug Allergy 08/24/2021 activ e Reason For Referral No Information Medications Medication SIG (Take, Route, Frequency, Duration) Notes Start Date End Date Status omeprazole 20 MG Delayed Release Oral Capsule ORAL omeprazole 20 MG Delayed Release Oral CapsuleOriginal Medicationomeprazole 20 MG Delayed Release Oral Capsule *Reorder from [employer] for eRx and Interaction Alerts* 02/24/2015 Active Medrol Dosepak ORAL Medrol DosepakOr iginal MedicationMedrol Dosepak *Reorder from [employer] for eRx and Interaction Alerts* 02/24/2015 Active Lopreeza 0.5/0.1 28 Day Pack ORAL Lopreeza 0.5/0.1 28 Day PackOriginal MedicationLopreeza 0.5/0.1 28 Day Pack *Reorder from [employer] for eRx and Interaction Alerts* 02/24/2015 Active citalopram 10 MG Oral Tablet ORAL citalopram 10 MG Oral TabletOriginal Medicationcitalopram 10 MG Oral Tablet *Reorder from [employer] for eRx and Interaction Alerts* 02/24/2015 Active Neomycin-Polymyx in-HC 3.5-36845-7 1-2 drops to affected area topical twice a day for 10 days one bottle of otic solution 06/20/2023 Active amlodipine 2.5 MG Oral Tablet ORAL amlodipine 2.5 MG Oral TabletOriginal Medicationamlodipine 2.5 MG Oral Tablet *Reorder from [employer] for eRx and Interaction Alerts* 02/24/2015 Active alprazolam 1 MG Oral Tablet [Xanax] ORAL alprazolam 1 MG Oral Tablet [Xanax]Original Medicationalprazolam 1 MG Oral Tablet [Xanax] *Reorder from [facility] for eRx and Interaction Alerts* 02/24/2015 Active Vital Signs Height-cm 157.48 cm 08/15/2023 Weight-kg 102.06 kg 08/15/2023 Height 62.00 in 08/15/2023 Weight 225 lbs 08/15/2023 BMI 41.15 kg/m2 08/15/2023 Encounters Encounter Location Date Provider Diagnosis [facility] [place] [address] [place] [address] [id number] 06/20/2023 CARMEN SNOOK Ingrowing nail L60.0 and Encounter for other specified surgical aftercare Z48.89 [facility] [place] [address] [place] [address] [id number] 07/04/2023 CARMEN SNOOK Ingrowing nail L60.0 and Encounter for other specified surgical aftercare Z48.89 [facility] [place] [address] [place] [address] [id number] 07/18/2023 CARMEN SNOOK Ingrowing nail L60.0 and Encounter for other specified surgical aftercare Z48.89 [facility] [place] [address] [place] [address] [id number] 08/15/2023 CARMEN SNOOK Ingrowing nail L60.0 and Encounter for other specified surgical aftercare Z48.89 Assessments Encounter Date Diagnosis (ICD Code) Assessment Notes Treatment Notes Treatment Clinical Notes Section Notes 06/20/2023 Ingrowing nail (ICD-10 - L60.0) Post-op [...] aftercare (ICD-10 - Z48.89) Plan Of Treatment No Information Insurance Providers Payer Name Payer Address Payer Phone Subscriber Number Group Number Insured Name Patient Relationship to Insured Coverage Start Date Coverage End Date [place] [employer] [facility] [address] [address] [place], [place] [id number] ANGEL VALDERRAMA Self - patient is the insured
--- OUTSIDE RECORDS SUMMARY | 2024-06-07 06:47 | XMS_ITS | Referral Summary ---
Author Organization [facility] Address [address] [facility] [place] [address] Care Team Providers Care Emissions Repair Technician Name Role Phone Unavailable Primary Care Provider Unavailabl e Source Comments [facility],non-[facility] and Associated Physician Practices is amultiple site organization consisting of ambulatory clinics and hospital sitesin [place], [place], [place] and [place]. This disclosure is being madepursuant to the Care Everywhere program and may not contain all information available regarding this patient. Last updated 17.[facility] Social History Tobacco Use Types Packs/Day Years Used Date Smoking Tobacco: Never Assessed Sex and Gender Information Value Date Recorded Sex Assigned at Not on file Gender Identity Not on file Sexual Orientation Not on file Plan of Treatment Not on file
--- OUTSIDE RECORDS SUMMARY | 2024-06-07 06:47 | XMS_ITS | Encounter Summary ---
Author Organization [facility] Address [address] [facility] [place] [address] Care Team Providers Care Computer Engineer Name Role Phone Unavailable Primary Care Provider Unavailabl e Encounter Details Date Type Department Care Team (Late st Contact Info) Description 09/07/[address] [facility] DermPath Lab [address] [place] [id number] Giorgio Callaway MD [address] [place] [address] Social History Tobacco Use Types [...] AM CDT) Case Report Dermatopathology Report Case: [id number] Authorizing Provider: Giorgio Callaway MD Collected: 09/05/2019 12:00 AM Ordering Location: [facility] Lab Received: 09/07/2019 07:01 AM [...] LABORATORY Clinical History A: Nevus. Path # [id number]. B: Nevus. Path # [id number]. 0 12:52 PM CDT DERMATOPATHOLOGY LABORATORY Gross Description Specimen A: Received is one formalin filled container labeled with the patient's name and designated mid back. The specimen consists of a shave biopsy measuring [id number]. Jar 0. Specimen B: Received is one formalin filled container labeled with the patient's name and designated left inner thigh. The specimen consists of a shave biopsy measuring [id number]. Jar 0. 0 12:52 PM T DERMATOPATHOLOGY [...] characteristic determined by the Dermatopathology Laboratory at [facility], directed by Dr. Jay Hackett. These tests need not be, and therefore are not, approved by the [place] Food and Drug Administration. The tests are used for clinical purposes. Billing Codes Specimen Charges Stain Charges 05554 69441 1 1 0 12:52 PM CDT DERMATOPATHOLOGY LABORATORY Embedded Images 0 12:52 PM CDT DERMATOPATHOLOGY LABORATORY Pathology/Cytology TISSUE SPECIMEN FROM SKIN / Unknown 09/05/2019 09/07/2019 7:01 AM CDT Miscellaneous samples (specimen) TISSUE SPECIMEN FROM SKIN / Unknown 09/05/2019 09/07/2019 7:01 AM CDT Giorgio Callaway MD LAB - PATHOLOGY/CYTO LOGY ORDERABLES DERMATOPATHOLOGY LABORATORY [facility] - Department of Dermatology [facility]/[address] [phone] documented in this encounter Visit Diagnoses Not on filedocumented in this encounter
--- OUTSIDE RECORDS SUMMARY | 2024-06-07 06:47 | XMS_ITS ---
Author Organization [facility] Address [address] [place], [place] [id number] Care Team Providers Care Forensic Identification Specialist Name Role Phone CARMEN HUNT Unavailable [phone] [place] Unavailable Unavailable REASON FOR VISIT The toe has finally healed and is doing well Medications Medication SIG (Take, Route, Frequency, Duration) Notes Start Date End Date Status omeprazole 20 MG Delayed Release Oral Capsule ORAL omeprazole 20 MG Delayed Release Oral CapsuleOriginal Medicationomeprazole 20 MG Delayed Release Oral Capsule *Reorder from [employer] for eRx and Interaction Alerts* 02/24/2015 Active Medrol Dosepak ORAL Medrol DosepakOr iginal MedicationMedrol Dosepak *Reorder from [employer] for eRx and Interaction Alerts* 02/24/2015 Active Neomycin-Polymyx in-HC 3.5-33344-8 1-2 drops to affected area topical twice a day for 10 days one bottle of otic solution 06/20/2023 Active amlodipine 2.5 MG Oral Tablet ORAL amlodipine 2.5 MG Oral TabletOriginal Medicationamlodipine 2.5 MG Oral Tablet *Reorder from [employer] for eRx and Interaction Alerts* 02/24/2015 Active alprazolam 1 MG Oral Tablet [Xanax] ORAL alprazolam 1 MG Oral Tablet [Xanax]Original Medicationalprazolam 1 MG Oral Tablet [Xanax] *Reorder from [employer] for eRx and Interaction Alerts* 02/24/2015 Active Lopreeza 0.5/0.1 28 Day Pack ORAL Lopreeza 0.5/0.1 28 Day PackOriginal MedicationLopreeza 0.5/0.1 28 Day Pack *Reorder from [facility] for eRx and Interaction Alerts* 02/24/2015 Active citalopram 10 MG Oral Tablet ORAL citalopram 10 MG Oral TabletOriginal Medicationcitalopram 10 MG Oral Tablet *Reorder from [facility] for eRx and Interaction Alerts* 02/24/2015 Active Vital Signs Height 62.00 in 08/15/2023 Weight 225 lbs 08/15/2023 BMI 41.15 kg/m2 08/15/2023 Height-cm 157.48 cm 08/15/2023 Weight-kg 102.06 kg 08/15/2023 Encounters Encounter Location Date Provider Diagnosis [facility] [place] [address] [place] [id number] 08/15/2023 CARMEN HUNT Ingrowing nail L60.0 and [...] ANGEL VALDERRAMA LDOB:[birth year] (62 yo F)Acc No.[id number]:08/15/2023 Patient: ANGEL FLORES Provider: Leslie Hunt DPM :1960 A ge:62 Y S ex:Female Date:08/15/2023 Address:[address] [place], [place] [id number] Subjective: * Chief Complaints: * 1 . [...] 1 MG Oral Tablet [Xanax] *Reorder from [facility] for eRx and Interaction Alerts*, Taking amlodipine 2.5 MG Oral Tablet ORAL , Notes to Pharmacist: amlodipine 2.5 MG Oral TabletOriginal Medicationamlodipine 2.5 MG Oral Tablet *Reorder from [facility] for eRx and Interaction Alerts*, Taking citalopram 10 MG Oral Tablet ORAL , Notes to Pharmacist: citalopram 10 MG Oral TabletOriginal Medicationcitalopram 10 MG Oral Tablet *Reorder from [facility] for eRx and Interaction Alerts*, Taking Lopreeza 0.5/0.1 28 Day Pack ORAL , Notes to Pharmacist: Lopreeza 0.5/0.1 28 Day PackOriginal MedicationLopreeza 0.5/0.1 28 Day Pack *Reorder from [facility] for eRx and Interaction Alerts*, Taking Medrol Dosepak ORAL , Notes to Pharmacist: Medrol DosepakOriginal MedicationMedrol Dosepak *Reorder from [facility] for eRx and Interaction Alerts*, Taking omeprazole 20 MG Delayed Release Oral Capsule ORAL , Notes to Pharmacist: omeprazole 20 MG Delayed Release Oral CapsuleOriginal Medicationomeprazole 20 MG Delayed Release Oral Capsule *Reorder from [employer] for eRx and Interaction Alerts*, Taking Ycavlecw-Vobcupwix-SS 3.5-30397-5 Suspension 1-2 drops to affected area topical [...] Information: * Visit Code: * Procedure Codes: 19400 POSTOP FOLLOW-UP VISIT. * Sign off status: Completed true * Provider: Leslie Hunt DPM Date: 0 08/15/2023 Generated for Dony cannon/Noam/Ryan on: 0 06/07/2024 06:46 AM EXHIBIT ELECTRICIAN History and Physical Notes * HPI (History [...]
--- OUTSIDE RECORDS SUMMARY | 2024-06-07 06:47 | XMS_ITS ---
Author Organization [facility] Address [address] [place], [place] [address] Care Team Providers Care Employee Development Specialist Name Role Phone CARMEN HUNT Unavailable [phone] [place] Unavailable Unavailable REASON FOR VISIT Patient returns to the office following toenail surgery. She stopped the foot soaks but the skin remains very dry and the nail borders are painful Medications Medication SIG (Take, Route, Frequency, Duration) Notes Start Date End Date Status Medrol Dosepak ORAL Medrol DosepakOr iginal MedicationMedrol Dosepak *Reorder from [employer] for eRx and Interaction Alerts* 02/24/2015 Active Lopreeza 0.5/0.1 28 Day Pack ORAL Lopreeza 0.5/0.1 28 Day PackOriginal MedicationLopreeza 0.5/0.1 28 Day Pack *Reorder from [employer] for eRx and Interaction Alerts* 02/24/2015 Active omeprazole 20 MG Delayed Release Oral Capsule ORAL omeprazole 20 MG Delayed Release Oral CapsuleOriginal Medicationomeprazole 20 MG Delayed Release Oral Capsule *Reorder from [employer] for eRx and Interaction Alerts* 02/24/2015 Active citalopram 10 MG Oral Tablet ORAL citalopram 10 MG Oral TabletOriginal Medicationcitalopram 10 MG Oral Tablet *Reorder from [employer] for eRx and Interaction Alerts* 02/24/2015 Active Neomycin-Polymyx in-HC 3.5-31971-6 1-2 drops to affected area topical twice a day for 10 days one bottle of otic solution 06/20/2023 Active alprazolam 1 MG Oral Tablet [Xanax] ORAL alprazolam 1 MG Oral Tablet [Xanax]Original Medicationalprazolam 1 MG Oral Tablet [Xanax] *Reorder from [facility] for eRx and Interaction Alerts* 02/24/2015 Active amlodipine 2.5 MG Oral Tablet ORAL amlodipine 2.5 MG Oral TabletOriginal Medicationamlodipine 2.5 MG Oral Tablet *Reorder from [facility] for eRx and Interaction Alerts* 02/24/2015 Active Vital Signs Height 62.00 in 07/04/2023 Weight 225 lbs 07/04/2023 BMI 41.15 kg/m2 07/04/2023 Height-cm 157.48 cm 07/04/2023 Weight-kg 102.06 kg 07/04/2023 Encounters Encounter Location Date Provider Diagnosis [facility] [place] [address] [place] [id number] 07/04/2023 CARMEN MALIKK Ingrowing nail L60.0 and [...] ANGEL VALDERRAMA LDOB:[birth year] (62 yo F)Acc No.[id number]:07/04/2023 Patient: ANGEL FLORES Provider: Leslie Hunt DPM :1960 A ge:62 Y S ex:Female Date:07/04/2023 Address:[address] [place], [place] [id number] Subjective: * Chief Complaints: * 1 . [...] 1 MG Oral Tablet [Xanax] *Reorder from [facility] for eRx and Interaction Alerts*, Taking amlodipine 2.5 MG Oral Tablet ORAL , Notes to Pharmacist: amlodipine 2.5 MG Oral TabletOriginal Medicationamlodipine 2.5 MG Oral Tablet *Reorder from [facility] for eRx and Interaction Alerts*, Taking citalopram 10 MG Oral Tablet ORAL , Notes to Pharmacist: citalopram 10 MG Oral TabletOriginal Medicationcitalopram 10 MG Oral Tablet *Reorder from [facility] for eRx and Interaction Alerts*, Taking Lopreeza 0.5/0.1 28 Day Pack ORAL , Notes to Pharmacist: Lopreeza 0.5/0.1 28 Day PackOriginal MedicationLopreeza 0.5/0.1 28 Day Pack *Reorder from [facility] for eRx and Interaction Alerts*, Taking Medrol Dosepak ORAL , Notes to Pharmacist: Medrol DosepakOriginal MedicationMedrol Dosepak *Reorder from [facility] for eRx and Interaction Alerts*, Taking omeprazole 20 MG Delayed Release Oral Capsule ORAL , Notes to Pharmacist: omeprazole 20 MG Delayed Release Oral CapsuleOriginal Medicationomeprazole 20 MG Delayed Release Oral Capsule *Reorder from [employer] for eRx and Interaction Alerts*, Taking Unfugaod-Upjuvcjbp-AZ 3.5-40040-9 Suspension 1-2 drops to affected area topical [...] Information: * Visit Code: * Procedure Codes: 89669 POSTOP FOLLOW-UP VISIT. * Sign off status: Completed true * Provider: Leslie Hunt DPM Date: 0 07/04/2023 Generated for Dony cannon/Noam/Ryan on: 0 06/07/2024 06:47 AM SLURRY BLENDER History and Physical Notes * HPI (History [...]
--- OUTSIDE RECORDS SUMMARY | 2024-06-07 06:47 | XMS_ITS ---
Author Organization [facility] Address [address] [place], [place] [address] Care Team Providers Care Delivery Of Shopping News Name Role Phone CARMEN HUNT Unavailable [phone] [place] Unavailable Unavailable REASON FOR VISIT The nail borders don't hurt, but they are dry and form scaling and irritation Medications Medication SIG (Take, Route, Frequency, Duration) Notes Start Date End Date Status Lopreeza 0.5/0.1 28 Day Pack ORAL Lopreeza 0.5/0.1 28 Day PackOriginal MedicationLopreeza 0.5/0.1 28 Day Pack *Reorder from [employer] for eRx and Interaction Alerts* 02/24/2015 Active Medrol Dosepak ORAL Medrol DosepakOr iginal MedicationMedrol Dosepak *Reorder from [employer] for eRx and Interaction Alerts* 02/24/2015 Active omeprazole 20 MG Delayed Release Oral Capsule ORAL omeprazole 20 MG Delayed Release Oral CapsuleOriginal Medicationomeprazole 20 MG Delayed Release Oral Capsule *Reorder from [employer] for eRx and Interaction Alerts* 02/24/2015 Active Neomycin-Polymyx in-HC 3.5-45779-4 1-2 drops to affected area topical twice a day for 10 days one bottle of otic solution 06/20/2023 Active alprazolam 1 MG Oral Tablet [Xanax] ORAL alprazolam 1 MG Oral Tablet [Xanax]Original Medicationalprazolam 1 MG Oral Tablet [Xanax] *Reorder from [facility] for eRx and Interaction Alerts* 02/24/2015 Active amlodipine 2.5 MG Oral Tablet ORAL amlodipine 2.5 MG Oral TabletOriginal Medicationamlodipine 2.5 MG Oral Tablet *[facility] for [facility]Rx and Interaction Alerts* 02/24/2015 Active citalopram 10 MG Oral Tablet ORAL citalopram 10 MG Oral TabletOriginal Medicationcitalopram 10 MG Oral Tablet *Reorder from [facility] for eRx and Interaction Alerts* 02/24/2015 Active Vital Signs Height 62.00 in 07/18/2023 Weight 225 lbs 07/18/2023 BMI 41.15 kg/m2 07/18/2023 Height-cm 157.48 cm 07/18/2023 Weight-kg 102.06 kg 07/18/2023 Encounters Encounter Location Date Provider Diagnosis [facility] [place] [address] [place] [id number] 07/18/2023 CARMEN HUNT Ingrowing nail L60.0 and [...] ANGEL VALDERRAMA LDOB:[birth year] (62 yo F)Acc No.[id number]:07/18/2023 Patient: Judit ANGEL JACOBSON Provider: Leslie Hunt DPM :1960 A ge:62 Y S ex:Female Date:07/18/2023 Address:[address] [place], [place] [phone] Subjective: * Chief Complaints: * 1 . The nail borders don't hurt, but they are dry and form scaling and irritation. * HPI: H PI: Follow Up Visit Judit sinclair presents for follow up visit for nail surgery , - bilateral. P yahir states their problem is,improving., Pt states the left is filter tender jelly at the base of the nail. M A: As. * Medical History: * Medications: T aking alprazolam 1 MG Oral Tablet [Xanax] ORAL , Notes to Pharmacist: alprazolam 1 MG Oral Tablet [Xanax]Original Medicationalprazolam 1 MG Oral Tablet [Xanax] *Reorder from [facility] for eRx and Interaction Alerts*, Taking amlodipine 2.5 MG Oral Tablet ORAL , Notes to Pharmacist: amlodipine 2.5 MG Oral TabletOriginal Medicationamlodipine 2.5 MG Oral Tablet *Reorder from [facility] for eRx and Interaction Alerts*, Taking citalopram 10 MG Oral Tablet ORAL , Notes to Pharmacist: citalopram 10 MG Oral TabletOriginal Medicationcitalopram 10 MG Oral Tablet *Reorder from [facility] for eRx and Interaction Alerts*, Taking Lopreeza 0.5/0.1 28 Day Pack ORAL , Notes to Pharmacist: Lopreeza 0.5/0.1 28 Day PackOriginal MedicationLopreeza 0.5/0.1 28 Day Pack *Reorder from [facility] for eRx and Interaction Alerts*, Taking Medrol Dosepak ORAL , Notes to Pharmacist: Medrol DosepakOriginal MedicationMedrol Dosepak *Reorder from [facility] for eRx and Interaction Alerts*, Taking omeprazole 20 MG Delayed Release Oral Capsule ORAL , Notes to Pharmacist: omeprazole 20 MG Delayed Release Oral CapsuleOriginal Medicationomeprazole 20 MG Delayed Release Oral Capsule *Reorder from [facility] for eRx and Interaction Alerts*, Taking Cubndhmx-Dutcisukv-MU 3.5-14320-9 Suspension 1-2 drops to affected area topical [...] Information: * Visit Code: * Procedure Codes: 37504 POSTOP FOLLOW-UP VISIT. * Sign off status: Completed true * Provider: Leslie Hunt DPM Date: 0 07/18/2023 Generated for Dony cannon/Noam/Joaquinaitting on: 0 06/07/2024 06:47 AM LIGHT TECHNICIAN History and Physical Notes * HPI (History of Present Illness) Category Sub-Category Detail Notes Category Not es HPI Follow Up Visit Patient presents for follow up visit for nail surgery , - bilateral. Patient states their problem is,improving., Pt states the left is filter tender jelly at the base of the nail. MA: As Examination Category Sub-Category Detail Notes Category Not es Dermatologic Ingrown Nail Nail surgery sit e is healing well. No signs of infection. There is hyperkeratotic skin in the nail folds
--- OUTSIDE RECORDS SUMMARY | 2024-06-07 06:47 | XMS_ITS | Patient Health Summary ---
Author Organization [facility] Address [address] [place] [address] Care Team Providers Care Pediatrician Active Practice Name Role Phone Unavailable Primary Care Provider Unavailabl e Note from [facility],non-owned Affiliates and Associated Physician Practices is amultiple site organization consisting of ambulatory clinics and hospital sitesin [place], [place], [place] and [place]. This disclosure is being madepursuant to the Care Everywhere program and may not contain all informatio navailable regarding this patient. Last updated 17.[facility] Social History Tobacco Use Types Packs/Day Years Used Date Smoking Tobacco: Never Assessed Sex and Gender Information Value Date Recorded Sex Assigned at Not on file Gender Identity Not on file Sexual Orientation Not on file Procedures * DERMATOPATHOLOGY(Performed 09/05/2019) Results * DERMATOPATHOLOGY (09/05/2019 12:00 AM CDT) Case Report Dermatopathology Report Case: [id number] Authorizing Provider: Giorgio Callaway MD Collected: 09/05/2019 12:00 AM Ordering Location: [facility] DermPath Lab Received: 09/07/2019 07:01 AM [...] LABORATORY Clinical History A: Nevus. Path # [id number]. B: Nevus. Path # [id number]. 0 12:52 PM CDT DERMATOPATHOLOGY LABORATORY Gross Description Specimen A: Received is one formalin filled container labeled with the patient's name and designated mid back. The specimen consists of a shave biopsy measuring [id number]. Jar 0. Specimen B: Received is one formalin filled container labeled with the patient's name and designated left inner thigh. The specimen consists of a shave biopsy measuring [id number]. Jar 0. 0 12:52 PM CDT DERMATOPATHOLOGY [...] characteristic determined by the Dermatopathology Laboratory at [facility], directed by Dr. Jay Hackett. These tests need not be, and therefore are not, approved by the [place] Food and Drug Administration. The tests are used for clinical purposes. Billing Codes Specimen Charges Stain Charges 76704 14387 1 1 0 12:52 PM CDT DERMATOPATHOLOGY LABORATORY Embedded Images 0 12:52 PM CDT DERMATOPATHOLOGY LABORATORY Pathology/Cytology TISSUE SPECIMEN FROM SKIN / Unknown 09/05/2019 09/07/2019 7:01 AM CDT Miscellaneous samples (specimen) TISSUE SPECIMEN FROM SKIN / Unknown 09/05/2019 09/07/2019 7:01 AM CDT Giorgio Callaway MD LAB - PATHOLOGY/CYTO LOGY ORDERABLES DERMATOPATHOLOGY LABORATORY [facility] - Department of Dermatology [employer] [place]/[address] [place] [address], [facility] [phone]
--- OUTSIDE RECORDS SUMMARY | 2024-06-07 06:47 | XMS_ITS | Clinical Summary ---
Author Organization [facility] Address [address] [place] [address] Care Team Providers Care Analytics Intern Name Role Phone Unavailable Primary Care Provider Unavailabl e Source Comments [facility],non-owned Affiliates and Associated Physician Practices is amultiple site organization consisting of ambulatory clinics and hospital sitesin [place], [place], [place] and [place]. This disclosure is being madepursuant to the Care Everywhere program and may not contain all information available regarding this patient. Last updated 17.[facility] Social History Tobacco Use Types Packs/Day Years [...] VACCINE (1 of 2) 12/23/2011 COVID-19 VACCINE ( - 2023-2 5 season) 2023 INFLUENZA VACCINE [...]
== END 2024-06-07 06:43 | disposition home or self-care (01) ==
PROVIDERS: PCP Internal Medicine; Visit Provider Internal Medicine
DX: M47.896 Other spondylosis, lumbar region (principal); M51.369 Other intervertebral disc degeneration, lumbar region without mention of lumbar back pain or lower extremity pain
CPT/HCPCS: 72148

== ENCOUNTER 2025-01-03 08:43 | Outpatient (CLI) | payer OTHER, SELFPAY ==
[2025-01-03 08:57] LABS: Hematocrit 42.2 % (37.0-47.0); Hemoglobin 13.5 g/dL (12.0-15.0); Immature Granulocyte Percent A 0.2 % (0-0.5); Lymphocytes Absolute Auto 1.51 K/mm3 (0.9-3.2); Mean Corpuscular HGB Conc 32.0 g/dl (32-36); Mean Corpuscular Hemoglobin 29.0 pg (26-34); Mean Corpuscular Volume 90.8 fl (80-100); Nucleated Red Blood Cells Absolute Auto 0.000 K/mm3 (0.0-0.012); Nucleated Red Blood Cells Perc 0.0 % (0.0-0.2); Platelet Count Result 214 k/mm3 (150-375); Red Blood Count 4.65 M/mm3 (4.2-5.4); White Blood Count 4.4 K/mm3 (4.5-10.0)
--- OUTSIDE RECORDS SUMMARY | 2025-01-03 08:57 | XMS_ITS | Clinical Summary ---
Author Organization [facility] Address [address] [place] [address] Care Team Providers Care Automobile Assembly Supervisor Name Role Phone Unavailable Primary Care Provider Unavailabl e Source Comments [facility],non-owned Affiliates and Associated Physician Practices is amultiple site organization consisting of ambulatory clinics and hospital sitesin [place], [place], [place] and [place]. This disclosure is being madepursuant to the Care Everywhere program and may not contain all information available regarding this patient. Last updated 17.[facility] [employer] Social History Tobacco Use Types Packs/Day Years Used Date Smoking Tobacco: Never Assessed Comments Unknown Sex and Gender Information Value Date Recorded Sex Assigned at Not on file Legal Sex Female 4:10 AM CDT Gender Identity Not on file Sexual [...] SCREENING 1961 LIPID TESTING 1961 MAMMOGRAM 1961 HIV SCREENING 1976 HEPATITIS C SCREENING 12/18/1979 DTAP/TDAP/TD VACCINES (1 - Tdap) 1980 PAP SMEAR 1982 PNEUMOCOCCAL VACCINE 50+ (1 of 1 - PCV) 12/23/2011 ZOSTER VACCINE (1 of 2) 12/23/2011 DEPRESSION SCREENING 04/04/2024 COVID-19 VACCINE (1 - 2023-2 5 season) 2024 INFLUENZA VACCINE (#1) 2024 Respiratory Syncytial Virus (RSV) Vaccine Pt: or [...] to complete this topic MENINGOCOCCAL (Group B) VACC INE SHARED DECISION-MAKING Aged Out No longer eligibl e based on patient's age to complete this topic MENINGOCOCCAL GROUPS A/C/Y/W VACCINE Aged Out No longer eligible b ased on patient's age to complete this topic Insurance [facility] Member Subscriber Plan / Payer (Ef fective 2024-Present) Name:Angel Hussein Relation to Subscriber:Self Name:ANGEL HUSSEIN Payer ID:[id number] (NAIC) Type:PPO Address: [place] [phone]
--- OUTSIDE RECORDS SUMMARY | 2025-01-03 08:57 | XMS_ITS | Encounter Summary ---
Author Organization [facility] Address [address] [place] [address] Care Team Providers Care Assembly Line Driver Name Role Phone Unavailable Primary Care Provider Unavailabl e Encounter Details Date Type Department Care Team (Late st Contact Info) Description 09/07/2019 Lab Requisition [facility] [address] [place] [address] Giorgio Calalway MD [address] [place] [address] Social History Tobacco Use Types [...] AM CDT) Case Report Dermatopathology Report Case: [id number] Authorizing Provider: Giorgio Callaway MD Collected: 09/05/2019 12:00 AM Ordering Location: [facility] Received: 09/07/2019 07:01 AM Pathologist: Belkis Chang MD Specimens: A) - Skin, mid back B) - Skin, left inner thigh 0 12:52 PM CDT DERMATOPATHOLOGY LABORATORY Final Diagnosis Specimen A. SKIN, mid back: BENIGN VERRUCOUS KERATOSIS, INFLAMED (L82.1) Specimen B. 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 Path # [id number]. B: Nevus. Path # [id number]. 0 12:52 PM CDT DERMATOPATHOLOGY LABORATORY Gross Description Specimen A: Received is one formalin filled container labeled with the patient's name and designated mid back. The specimen consists of a shave biopsy measuring [id number]. Jar 0. Specimen B: Received is one formalin filled container labeled with the patient's name and designated left inner thigh. The specimen consists of a shave biopsy measuring [id number]. Jar 0. 0 12:52 PM CDT DERMATOPATHOLOGY [...] characteristic determined by the Dermatopathology Laboratory at [facility], directed by Dr. Jay Hackett. These tests need not be, and therefore are not, approved by the [place] Food and Drug Administration. The tests are used for clinical purposes. Billing Codes Specimen Charges Stain Charges 89779 46527 1 1 0 12:52 PM CDT DERMATOPATHOLOGY LABORATORY Embedded Images 0 12:52 PM CDT DERMATOPATHOLOGY LABORATORY Pathology/Cytology TISSUE SPECIMEN FROM SKIN / Unknown 09/05/2019 09/07/2019 7:01 AM CDT Miscellaneous samples (specimen) TISSUE SPECIMEN FROM SKIN / Unknown 09/05/2019 09/07/2019 7:01 AM CDT us Giorgio Callaway MD LAB - PATHOLOGY/CYTOLOGY ORDER TORY Final Result DERMATOPATHOLOGY LABORATORY [facility] - Department of Dermatology [facility]/[address] [phone] documented in this encounter Visit Diagnoses Not on filedocumented in this encounter
--- OUTSIDE RECORDS SUMMARY | 2025-01-03 08:57 | XMS_ITS | Clinical Summary ---
Author Organization [facility] Address [address] [place] [address] Care Team Providers Care Bevel Face Stoner And Polisher Name Role Phone Yash Pena MD Primary Care Provider [phone] Allergies Active Allergy Reactions Criticality Noted Date [...] for preventive health examination 06/02/2012 12/14/2019 Immunizations Immunization Administration Dates Next Due Tdap (Boostrix) 11/21/2018 [...] 3:23 PM CDT Height 156.8 cm (5' 1.75) 11/21/2018 3:23 PM CD T pt reported [...] Screening with HPV 12/23/1991 Mammogram Screening 2001 Pneumococcal Vaccine: 50+ Ye ars (1 of 1 - PCV) 12/23/2011 Zoster Vaccines (1 of 2) 12/23/2011 Annual Physical 11/22/2019 11/21/2018 COVID-19 Vaccine (1 - 2023-2 5 season) 2024 DTaP, Tdap and Td Vaccines ( [...] Most Recently Relevant to Health Maintenance Insurance [facility] Care Teams Bevel Face Stoner And Polisher Relationship Specialty Start Date End Date Yash Pena MD PCP - General FAMILY PRACTICE 11/20/18
--- OUTSIDE RECORDS SUMMARY | 2025-01-03 08:57 | XMS_ITS | Patient Health Record ---
Author Organization [facility] Address [address] [place], [place] [id number] Care Team Providers Care Upholstery Parts Sorter Name Role Phone CARMEN HUNT Unavailable [phone] [place] Unavailable Unavailable Allergies Allergen (clinical [...] MG Delayed Release Oral Capsule *Reorder from [employer] for eRx and Interaction Alerts* 02/24/2015 Active Medrol Dosepak ORAL Medrol DosepakOr iginal MedicationMedrol Dosepak *Reorder from [employer] for eRx and Interaction Alerts* 02/24/2015 Active Lopreeza 0.5/0.1 28 Day Pack ORAL Lopreeza 0.5/0.1 28 Day PackOriginal MedicationLopreeza 0.5/0.1 28 Day Pack *Reorder from [employer] for eRx and Interaction Alerts* 02/24/2015 Active citalopram 10 MG Oral Tablet ORAL citalopram 10 MG Oral TabletOriginal Medicationcitalopram 10 MG Oral Tablet *Reorder from [facility] for eRx and Interaction Alerts* 02/24/2015 Active Neomycin-Polymyx in-HC 3.5-32296-2 1-2 drops to affected area topical twice a day; Duration: 10 days one bottle of otic solution 06/20/2023 Active amlodipine 2.5 MG Oral Tablet ORAL amlodipine 2.5 MG Oral TabletOriginal Medicationamlodipine 2.5 MG Oral Tablet *Reorder from [facility] for eRx and Interaction Alerts* 02/24/2015 Active alprazolam 1 MG Oral Tablet [Xanax] ORAL alprazolam 1 MG Oral Tablet [Xanax]Original Medicationalprazolam 1 MG Oral Tablet [Xanax] *Reorder from [facility] for eRx and Interaction Alerts* 02/24/2015 Active Immunizations Vaccine Route Administration Date Status Comme nts Influenza, high dose seasonal Unknown 06/24/2024 Admini stered Pneumococcal conjugate PCV 13 Unknown 06/24/2024 Admini stered Plan Of Treatment No Information Insurance Providers Payer Name Payer Address Payer Phone Subscriber Number Group Number Insured Name Patient Relationship to Insured Coverage Start Date Coverage End Date [employer] [facility] [address] [address] [place], [place] [id number] ANGEL VALDERRAMA Self - patient is the insured
--- OUTSIDE RECORDS SUMMARY | 2025-01-03 08:58 | XMS_ITS | Patient Health Record ---
Author Organization [facility] Address [address] [facility] [address] [place] [address] Care Team Providers Care Waste Paper Hammermill Operator Name Role Phone Afshin Vaughn Unavailable [phone] Reason For Referral No Information Medications Medication SIG (Take, Route, Frequency, Duration) Notes Start Date End Date Status Benzonatate 200 MG Capsule Oral 08/26/2021 Active guaiFENesin-Codeine 100-10 MG/5ML Solution Oral 08/26/2021 Active amLODIPine Besylate 5 MG Tablet Oral 08/26/2021 Active ALPRAZolam 0.25 MG Tablet Oral 08/26/2021 Active Sertraline HCl 100 MG Tablet Oral 08/26/2021 Active Paxlovid (300/100) 20 x 150 MG & 10 x 100MG Tablet Therapy Pack Oral *Reorder from [employer] for eRx and Interaction Alerts* 08/26/2021 Active Betamethasone Valerate 0.1 % Cream External 08/26/2021 Active Immunizations Vaccine Route Administration Date Status Comme nts Pfizer Biontech Covid-19 Vac cine 2nd dose Unknown 03/25/2020 Administered Pfizer [employer]tech Covid-19 Vac cine 2nd dose Unknown 04/15/2020 Administered Pfizer [employer] Covid-19 Vac cine 2nd dose Unknown 01/09/2021 Administered Pfizer [employer]tech Covid-19 Vac cine 2nd dose Unknown 07/13/2021 Administered Social History Social History Additional Details Category Social Info Options Details Migrated Social History Migrated Social History Alcohol Intake: Occasional 02/17/2021,Tobacco Years: Never smoker 01/13/2021 Plan Of Treatment No Information Insurance Providers Payer Name Payer Address Payer Phone Subscriber Number Group Number Insured Name Patient Relationship to Insured Coverage Start Date Coverage End Date r [address] [address] [place] [phone] [id number] ANGEL VALDERRAMA Self - patient is the insured Medical (General) History Surgical History Surgery Date(Month/Year) Any surgical history Tonsilectomy/adenoids Breast surgery () D & c after delivery ([id number])
[2025-01-03 09:07] LABS: Hemoglobin A1C 6.1 % (<5.7)
[2025-01-03 09:18] LABS: Alanine Aminotransferase 37 U/L (6-35); Albumin Level 4.2 g/dL (3.5-5.1); Alkaline Phosphatase 86 U/L (38-126); Anion Gap 7 mmol/L (4-12); Aspartate Amino Transferase 39 U/L (14-36); Bilirubin,Total 0.5 mg/dL (0.2-1.3); Blood Urea Nitrogen 17 mg/dL (7-17); Calcium 8.9 mg/dL (8.4-10.2); Carbon Dioxide 27 mmol/L (22-30); Chloride 103 mmol/L (98-107); Cholesterol 214 mg/dL (0-200); Estimated Glomerular Filt Rate 58; Glucose 108 mg/dL (65-110); HDL Direct 58 mg/dL; Potassium 4.2 mmol/L (3.4-5.0); Sodium 137 mmol/L (137-145); Total Protein 7.1 g/dL (6.3-8.2); Triglycerides 96 mg/dL (<150)
== END 2025-01-03 08:44 | disposition home or self-care (01) ==
LOC: ANHLAB 08:45
PROVIDERS: PCP Internal Medicine; Visit Provider Internal Medicine
DX: E78.5 Hyperlipidemia, unspecified (principal); R73.9 Hyperglycemia, unspecified; I10 Essential (primary) hypertension; D64.9 Anemia, unspecified
CPT/HCPCS: 36415; 80053; 80061; 83036; 85025